=== PATIENT | male | born 1955 | race Caucasian/White ===

== ENCOUNTER 2017-09-14 16:20 | Inpatient (IN) | payer OTHER, SELFPAY ==
[2017-09-14 16:21] VITALS: BP 121/74; PULSE 82; PULSE 84; RESP 17; RESP 18; TEMP 36.8; O2SAT 97; BMI 37.5
[2017-09-14 17:04] LABS: Absolute Lymphocyte Count 1.74 X10^3/ul (0.83-4.51); Absolute Neutrophil Count 11.2 X10^3/uL (2.0-7.7); Basophil# 0.04 X10^3/uL; Basophil% 0.3 % (0-1); Eosinophil# 0.05 X10^3/uL; Eosinophils% 0.3 % (0-5); Hematocrit 43.8 % (40-54); Hemoglobin 15.3 g/dl (13.0-16.5); Lymphocyte # 1.74 X10^3/ul (4.0); Lymphocyte % 12.1 % (19-41); Mean Corp Hgb Conc 34.9 g/gl (32-36); Mean Corpuscular Hgb 31.1 pg (27.0-32.0); Mean Platelet Vol. 10.1 fl (6.2-12.0); Neutrophil # 11.24 X10^3/uL (2.7-7.7); Platelet Count 293 K/mm3 (150-450); RBC Distribution Width SD 38.3 fl (35.1-43.9); Red Blood Count 4.92 M/mm3 (4.6-6.2); White Blood Count 14.4 K/mm3 (4.4-11.0)
[2017-09-14 17:13] LABS: POSITIVE COUNT NO; POSITIVE DIFFERENTIAL NO; POSITIVE MORPHOLOGY NO
[2017-09-14 17:15] LABS: Anion Gap 7 (5-15); BUN 7 mg/dL (7-18); BUN/Creat Ratio 6.7 RATIO (10-20); Calcium,Total 9.1 mg/dL (8.5-10.1); Chloride 103 mmol/L (98-107); Creatinine, Serum 1.05 mg/dL (0.70-1.30); EST Glomerular Filtration Rate 76 mL/min (>60); Est Glom Filt Rate - Afr Amer 92 mL/min (>60); Estimated Creatinine Clearance 53.96 ml/min; Glucose 106 mg/dL (74-106); Potassium 4.2 mmol/L (3.5-5.1); Sodium Level 138 mmol/L (136-145)
--- NOTE | 2017-09-14 17:44 | CT_ITS ---
STUDY: CT ABDOMEN AND PELVIS WITH CONTRAST REASON FOR EXAM: Male, 61 years old. Abdominal pain RADIATION DOSAGE (If Supplied By Facility): CTDIvol = ( 15.98 ) mGy, DLP = ( 1089.99 ) mGycm TECHNIQUE: Transaxial images were obtained from the lower chest to the upper thighs without oral contrast. 100 ml of Isovue 300 contrast was administered. Sagittal and coronal images were reconstructed. Individualized dose optimization techniques were used for this CT. COMPARISON: None. FINDINGS: There is minimal dependent atelectasis in both lung bases. There is no pleural effusion. The heart is normal in size. The liver is unremarkable. The gallbladder and biliary system are unremarkable. The spleen is unremarkable. The pancreas is unremarkable. The adrenal glands are unremarkable. The right kidney is unremarkable. There is no dilatation of the collecting system in the right kidney. There is a benign 2.3 cm cyst in the upper pole of the left kidney. There is no dilatation of the collecting system in the left kidney. The stomach is unremarkable. The small bowel is unremarkable. There are diverticula in the distal colon. There is marked wall thickening and surrounding stranding in the proximal and mid sigmoid. The appendix is visualized and appears normal. There are minimal vascular calcifications. The inferior vena cava is unremarkable. The retroperitoneum is unremarkable. There is no free fluid in the abdomen. The urinary bladder is unremarkable. The prostate measures up to 7 cm in the sagittal plane. There is trace fluid in the pelvis. There are small phleboliths scattered in the lower pelvis. There is a small umbilical hernia containing fat. There are mild degenerative changes in the visualized spine. There are a few sclerotic foci are scattered in the lower spine and pelvis. The largest measures 1.1 cm in the T10 vertebral body. CT/Abdomen/Pelvis W IV Cont ONLY IMPRESSION: There is acute diverticulitis in the proximal and mid sigmoid. There is no bowel obstruction, free air or evidence of abscess. There is trace ascites in the pelvis. The prostate is enlarged measuring 7 cm in the sagittal plane and extending into the lower aspect of the bladder. There are a few small sclerotic foci scattered in the lower spine and pelvis which are nonspecific. The largest measures 1.1 cm in the T10 vertebral body. Electronically Signed: Reta Rooney MD at 18:55 EDT Tel Direct: [phone], Service support ,
[2017-09-14] MEDS: 0.9% Normal Saline 1,000 ML 999 ML IV (18:08)
--- NOTE | 2017-09-14 18:14 | ED.DCSUM_ITS ---
- ER Visit Summary Date of Service: 09/14/17 Chief Complaint: Abdominal pain History of Present Illness: The patient is a 61 M presents to the emergency department abdominal pain. The patient does have a history of diverticulitis. He states that he was actually hospitalized in 2010 with an abscess. He did see Dr. Henry at that time. He did not require any intervention. He was following up as an outpatient and they were going to schedule surgery, but he states he ended up having urinary retention and had to see a urologist. He has been on prostate medication since, but never followed up again to discuss surgery. He states that once a year, he will get a flare. He called his primary care physician who started him on Cipro and Flagyl. He has been on it for 5 days, but feels as if his pain is worsened. He denies any fevers or chills. He denies any nausea or vomiting. He has no history of abdominal surgery. Physical Examination: Vital signs reviewed General: Well-nourished, well-developed Head: Normocephalic, atraumatic Eyes: Pupils equal and reactive, extraocular muscles intact Neck, supple, no lymphadenopathy Heart: Regular rate and rhythm Respiratory: No distress, clear bilaterally Abdomen: Soft, mildly tender in the left lower quadrant without rebound or guarding, nondistended, no peritoneal signs Back: Nontender Extremities: Nontender, no edema, no cords Skin: Normal color no rash Neuro: Alert and oriented, no focal or lateralizing deficits Test Results: [] Emergency Department Course and Treatment: The patient presents with persistent symptoms of diverticulitis without improvement on outpatient medications. He was mildly tender in his left lower quadrant. IV was established. Screening labs do show mild leukocytosis but otherwise unremarkable. Patient was sent for CT of the abdomen and pelvis which does show persistent diverticular disease , but no evidence of abscess or perforation. As the patient has failed outpatient management and has persistent symptoms, I do feel that he will require admission with IV antibiotics. Patient was discussed with the hospitalist who agrees with plan of care. Treatment Plan: [] Disposition: Admission Impression: 1. Diverticulitis with failed outpatient treatment This note was generated with Stockpileation software. It may contain incorrect words, spelling, and punctuation that were not noted in review of the chart prior to signing ED Disposition - Plan for ED Patient: Disposition: Acute Care Hospital [facility] Chief Complaint: Abd Pain
[2017-09-14 19:03] LABS: Bacteria 0 SEEN /hpf (None Seen); Mucous, Urine 0 SEEN /hpf (<or=2+); Red Blood Cells-Urine 0 SEEN /hpf (0-5); Squamous Epithelial Cells - UA 0 SEEN /hpf (0-5); White Blood Cells 0 SEEN /hpf (0-5)
[2017-09-14 19:10] LABS: Color, Urine Yellow (Yellow); Glucose, Dipstick Normal (Normal); Ketone-Dipstick 50 mg/dl (Negative); Leukocyte Esterase-Dipstick 25 /ul (Negative); Nitrite-Dipstick Negative (Negative); Occult Blood-Urine Negative /ul (Negative); Protein-Dipstick Negative (Negative); Urine Bilirubin Dipstick Negative (Negative); Urine Clarity Clear (Clear); Urine Urobilinogen Normal (Normal); Urine pH 6.5 (5.0 - 8.0)
--- NOTE | 2017-09-14 20:00 | PCM.HP.STD ---
Problem List (1) Diverticulitis Status: Acute (2) BPH (benign prostatic hyperplasia) Status: Chronic History of Present Illness Date of Admission: 09/14/17 Chief Complaint: abdominal pain The patient is a 61 year old M with past medical history of hyperlipidemia, diverticulosis and benign prostatic hypertrophy who [facility] c/o abdominal pain for 5 days. He denied fevers, chills, nausea, vomiting, sweats, diarrhea or constipation. He has had diverticulitis once a year since 2010. He has seen Dr. Villareal in the past who plans a sigmoid colectomy but, pt never followed up after he saw Dr. Zambrano for BPH and was treated. He has been juan a clear liquid diet and has taken Cipro and Flagyl for 5 days with no improvement in the pain. Vital signs at presentation to the emergency room were temperature 98.3, pulse rate 84, blood pressure 121/74, respiratory rate 18 and he was 97% saturated on room air. Significant lab included an elevated white blood cell count at 14.4 with 78% neutrophils. Electrolytes, BUN and creatinine were within normal limits. UA was negative for infection. CT scan of the abdomen and pelvis showed marked wall thickening and surrounding stranding in the proximal and mid sigmoid colon. There were multiple diverticuli. There was a small umbilical hernia containing fat. Findings were consistent with acute diverticulitis in the proximal and mid sigmoid with no evidence of abscess. He was given Zosyn 4.5 g in the emergency room and [facility] Zosyn will be continued and he was started on a clear liquid diet. Past Medical History Past Medical History (Chronic Problems): Chronic Problems BPH (benign prostatic hyperplasia) (Chronic) Dyslipidemia (Chronic) Allergies No Known Allergies Allergy (Verified 09/14/17 16:21) Home Medications: Ambulatory Orders Medication Instructions Recorded Dextrin [Fiber] 350 gm PO DAILY 09/14/17 Finasteride [Proscar] 5 mg PO DAILY 09/14/17 Multivitamins,Therapeutic 1 tablet PO DAILY 09/14/17 [Multivitamin] Tamsulosin HCl [Flomax] 0.4 mg PO DAILY 09/14/17 Surgical History: no surgical history Psychiatric History: No pertinent psych hx Lives: Spouse/ Significant Other Smoking Status: Former smoker - quit in 1979 Tobacco Use: Non-smoker Alcohol: Heavy - he has a few beers every day and he occasionally drinks hard liquor - *Family History Maternal History Items: - - His mother with cervical cancer Paternal History Items: - - Father with a ruptured aortic aneurysm Sibling History Items: - - He has a brother with diabetes mellitus. Review of Systems Constitutional: Reports: Anorexia. Denies: Chills, Fever, Night Sweats Eyes: Denies: Vision Change HEENT: Denies: Head Aches, Sinus Congestion, Sinus Drainage Cardiovascular: Denies: Chest Pain, Palpitations Respiratory: Denies: Cough, Shortness of breath at rest, Shortness of breath upon exertion, Sputum production Gastrointestinal: Reports: Abdominal Pain, Vomiting. Denies: Constipation, Diarrhea, Hematemesis, Hematochezia, Nausea, Melena Genitourinary: Denies: Dysuria, Hesitancy, Retention, Urgency Musculoskeletal: Denies: Joint Pain, Joint Tenderness Skin: Denies: Rash, Wounds Neurological: Denies: Numbness, Tingling, Focal weakness Psychiatric: Denies: Anxiety, Depression, Homicidal Ideations, Suicidal Ideations Endocrine: Denies: Change in Body Habitus Hematologic/ Lymphatic: Denies: Easy Bruising, Easy Bleeding, Hx of blood clot VTE Information - Inpt Only VTE Present on Admission: No VTE Mechan Device Prophylaxis: Knee High DELLA Hose VTE Pharm Prophylaxis ordered?: Yes Patient Problems: Active and Suspected Problems Diverticulitis (Acute) - Physical Exam General: Alert, Oriented x3, Cooperative, Well developed, Well nourished HEENT: Atraumatic, PERRLA, EOMI, Normocephalic Oral: No Gingival or Mucosal Lesions/ Ulcerations, Dry Mucosa Neck: Supple, No JVD, Negative Carotid Bruits, Trachea Midline Lungs: Clear to auscultation, Normal air movement, No rhonchi, No wheeze, No rales Cardiovascular: Regular rate, Regular Rhythm, Normal S1, Normal S2, No murmurs, No rub noted, No Gallop Abdomen: Bowel Sounds Present, Soft, Distended - mild, Tender - in the RLQ and the LLQ....no guarding with palpation. No pain with palpation in the upper quadrants Extremities: No clubbing, No cyanosis, No edema, No Calf Tenderness, Peripheral Pulses Normal Skin: No rashes, No breakdown Musculoskeletal: No Muscle Wasting Neurological: Cranial nerves II-XII grossly intact, Neuro grossly intact Psych/Mental Status: Normal Affect, Appropriate Vital Signs Temp Pulse Resp BP Pulse Ox 98.3 F 84 18 121/74 H 97 09/14/17 16:21 09/14/17 16:21 09/14/17 16:21 09/14/17 16:21 09/14/17 16:21 Oxygen Delivery Method Room Air Weight: 198 lb 13.711 oz Body Mass Index (BMI) 37.5 Laboratory Tests Past 24 Hrs 09/14/17 09/14/17 09/14/17 16:54 16:54 18:35 WBC 14.4 H RBC 4.92 Hgb 15.3 Hct 43.8 MCV 89.0 MCH 31.1 MCHC 34.9 RDW 12.0 RDW Differential 38.3 Plt Count 293 MPV 10.1 Immature Gran % (Auto) 0.300 Neut % (Auto) 78.0 H Lymph % (Auto) 12.1 L Woods % (Auto) 9.0 Eos % (Auto) 0.3 Baso % (Auto) 0.3 Absolute Neuts (auto) 11.2 H Absolute Lymphs (auto) 1.74 Total Counted Not Reportable Sodium 138 Potassium 4.2 Chloride 103 Carbon Dioxide 28.0 Anion Gap 7 BUN 7 Creatinine 1.05 Estim Creat Clear Calc 53.96 Est GFR (MDRD) Af Amer 92 Est GFR (MDRD) Non-Af 76 BUN/Creatinine Ratio 6.7 L Glucose 106 Calcium 9.1 Urine Color Yellow Urine Clarity Clear Urine pH 6.5 Ur Specific [place] 1.010 Urine Protein Negative Urine Glucose (UA) Normal Urine Ketones 50 H Urine Occult Blood Negative Urine Nitrite Negative Urine Bilirubin Negative Urine Urobilinogen Normal Ur Leukocyte Esterase 25 H Urine RBC 0 SEEN Urine WBC 0 SEEN Ur Squamous Epith Cells 0 SEEN Urine Bacteria 0 SEEN Urine Mucus 0 SEEN Assessment/Plan All Active Problems Diverticulitis (Acute) Impressions 1. acute recurrent diverticulitis in the proximal and mid sigmoid - failed OP 2. diverticulosis 3. BPH 4. HLD - untreated Admit to med surg Clear Liquid diet -advance to low residue diet as tolerated Zosyn 3.375 GM IV q 8 hr LR at 125cc/hr DVT prophylaxis with DELLA hose and Lovenox 40 mg subcu daily Order pain medication, morphine sulfate 4 mg IV every 3 hours as needed pain and OxyIR 10 mg p.o. every 4 hours as needed pain Discussed with Dr. Kirk Villareal-he will see the patient in follow-up in his office post discharge to arrange for sigmoid colectomy. He is available over the weekend should the patient develop an abscess or any significant problems requiring general surgery. Check a lipid panel in the a.m. Continue home meds. Code Visit Inpatient E&M: 96048 Init Hosp L2
[2017-09-14 20:28] VITALS: BP 119/83; PULSE 69; RESP 16; TEMP 36.8; O2SAT 100
[2017-09-14 20:31] VITALS: BMI 26.2
[2017-09-14 20:42] VITALS: BMI 26.3
[2017-09-14] MEDS: Lactated Ringers 1,000 ML 125 ML IV (21:00)
[2017-09-15 02:42] VITALS: BP 118/73; PULSE 62; RESP 16; TEMP 37; O2SAT 99
[2017-09-15] MEDS: Lactated Ringers 1,000 ML 125 ML IV ×3 (05:05→23:08)
[2017-09-15] MEDS: Piperacil/Tazobactam 3.375 GM/50 ML ML IV ×3 (05:05→21:11)
[2017-09-15 06:54] LABS: Cholesterol 103 mg/dL (200); High Density Lipoprotein 36 mg/dL; Triglycerides 48 mg/dL; Very Low Density Lipoprotein 10 mg/dL (5-40)
--- NOTE | 2017-09-15 07:29 | PCM.PN.HOSP ---
Patient Problems: Active and Suspected Problems Diverticulitis (Acute) Subjective: Patient is a 61-year-old gentleman with past medical history cigar for dyslipidemia, BPH who presented with abdominal pain. Patient had apparently been treated with Cipro and Flagyl for diverticulitis as outpatient without much improvement imaging studies obtained on admission demonstrated acute diverticulitis involving the proximal and mid sigmoid. Objective: GENERAL: cooperative HEENT: Clear conjunctiva, NECK; supple, normal thyroid, CHEST: Clear to auscultation bilaterally, HEART: Regular S1 S2, no audible murmurs ABDOMEN: soft, normoactive bowel sounds, RECTAL: deferred EXTREMITIES: No edema, no clubbing, no cyanosis. ROAD CLEANER: Awake; no lateralizing signs. SKIN: No Rash Vitals/I&O's: Vital Signs Temp Pulse Resp BP Pulse Ox 98.6 F 62 16 118/73 99 09/15/17 02:42 09/15/17 02:42 09/15/17 02:42 09/15/17 02:42 09/15/17 02:42 Oxygen Delivery Method Room Air Weight: 90.401 kg Body Mass Index (BMI) 26.2 Intake and Output for Last 24 Hours 09/13/17 09/14/17 09/15/17 23:59 23:59 23:59 Intake Total 1673 / 1673 Output Total 300 / 300 Balance 1373 / 1373 Laboratory Results 09/15/17 05:40: Triglycerides 48, Cholesterol 103, LDL Cholesterol 57, VLDL Cholesterol 10, HDL Cholesterol 36 L Current Medications Enoxaparin Sodium (Lovenox) 40 mg SC DAILY@1000 MARIE Finasteride (Proscar) 5 mg PO DAILY [facility] Famotidine 20 mg/ Sodium (Chloride) 10 mls @ 300 mls/hr IV Q12 [facility] Last Admin: 09/14/17 21:51 Dose: 300 mls/hr Piperacillin Sod/Tazobactam Sod (Zosyn) 3.375 gm in 50 mls @ 12.5 mls/hr IV Q8 MARIE Last Admin: 09/15/17 05:05 Dose: 12.5 mls/hr Lactated Ringer's () 1,000 mls @ 125 mls/hr IV .Q8H MARIE Last Admin: 09/15/17 05:05 Dose: 125 mls/hr Sodium Chloride () 250 mls @ 15 mls/hr IV .[id number] PRN PRN Reason: SALINE FLUSH Magnesium Hydroxide (Milk Of Magnesia) 30 ml PO DAILY PRN PRN PRN Reason: Constipation Morphine Sulfate () 4 mg IV Q3H PRN PRN PRN Reason: SEVERE PAIN (6-10/10) Multivitamins (Multivitamin) 1 tablet PO DAILY MARIE Ondansetron HCl (Zofran) 4 mg IV Q6H PRN PRN PRN Reason: NAUSEA Oxycodone HCl (Oxyir) 10 mg PO Q4H PRN PRN PRN Reason: SEVERE PAIN (6-10/10) Sodium Chloride () 5 - 30 ml IV UD PRN PRN Reason: SALINE FLUSH Tamsulosin HCl (Flomax) 0.4 mg PO DAILY [facility] Medical Necessity - Tobacco Use Smoking Status: Former smoker - quit in 1979 Tobacco Use: Non-smoker Assessment/Plan All Active Problems Diverticulitis (Acute) Patient is a 61-year-old gentleman with past medical history cigar for dyslipidemia, BPH who presented with abdominal pain. Patient had apparently been treated with Cipro and Flagyl for diverticulitis as outpatient without much improvement imaging studies obtained on admission demonstrated acute diverticulitis involving the proximal and mid sigmoid. 1. Acute proximal and mid sigmoid diverticulitis: Patient did feel outpatient therapy admitted for inpatient treatment. Started on Zosyn, IV fluids pain meds 2. Recurrent diverticulitis; did discuss with patient to follow-up with general surgery Dr. Villareal as outpatient for definitive management 3. BPH symptoms controlled on Proscar and Flomax 3. Dyslipidemia treated with diet 4. DVT prophylaxis SC heparin Clinical Impression(s) from Imaging Studies Abdomen/Pelvis CT 09/14/17 17:44 IMPRESSION: There is acute diverticulitis in the proximal and mid sigmoid. There is no bowel obstruction, free air or evidence of abscess. There is trace ascites in the pelvis. The prostate is enlarged measuring 7 cm in the sagittal plane and extending into the lower aspect of the bladder. There are a few small sclerotic foci scattered in the lower spine and pelvis which are nonspecific. The largest measures 1.1 cm in the T10 vertebral body. Electronically Signed: Reta Rooney MD at 18:55 EDT Tel Direct: [phone], Service support , Active Medications Enoxaparin Sodium (Lovenox) 40 mg SC DAILY@1000 MARIE Finasteride (Proscar) 5 mg PO DAILY [facility] Famotidine 20 mg/ Sodium (Chloride) 10 mls @ 300 mls/hr IV Q12 [facility] Last Admin: 09/14/17 21:51 Dose: 300 mls/hr Piperacillin Sod/Tazobactam Sod (Zosyn) 3.375 gm in 50 mls @ 12.5 mls/hr IV Q8 [facility] Last Admin: 09/15/17 05:05 Dose: 12.5 mls/hr Lactated Ringer's () 1,000 mls @ 125 mls/hr IV .Q8H [facility] Last Admin: 09/15/17 05:05 Dose: 125 mls/hr Sodium Chloride () 250 mls @ 15 mls/hr IV .[id number] PRN PRN Reason: SALINE FLUSH Magnesium Hydroxide (Milk Of Magnesia) 30 ml PO DAILY PRN PRN PRN Reason: Constipation Morphine Sulfate () 4 mg IV Q3H PRN PRN PRN Reason: SEVERE PAIN (6-10/10) Multivitamins (Multivitamin) 1 tablet PO DAILY [facility] Ondansetron HCl (Zofran) 4 mg IV Q6H PRN PRN PRN Reason: NAUSEA Oxycodone HCl (Oxyir) 10 mg PO Q4H PRN PRN PRN Reason: SEVERE PAIN (6-10/10) Sodium Chloride () 5 - 30 ml IV UD PRN PRN Reason: SALINE FLUSH Tamsulosin HCl (Flomax) 0.4 mg PO DAILY [facility] Code Visit Inpatient E&M: [address] [facility] Hosp L3
[2017-09-15 07:43] VITALS: BP 115/72; PULSE 66; RESP 16; TEMP 37.2; O2SAT 95
[2017-09-15] MEDS: Enoxaparin 40 MG/0.4 ML Syringe SC (10:35)
[2017-09-15] MEDS: Finasteride 5 MG Tablet PO (10:36)
[2017-09-15] MEDS: Multivitamins,Therapeutic Tablet 1 TABLET PO (10:36)
[2017-09-15] MEDS: Tamsulosin HCl 0.4 MG Capsule PO (10:36)
[2017-09-15 13:29] VITALS: BP 122/69; PULSE 70; RESP 16; TEMP 36.9; O2SAT 98
--- NOTE | 2017-09-15 14:40 | CHAPLAIN ---
Type of Pastoral Visit _x__ Initial Visit ___ Follow-up Visit ___ On-call Visit ___ General Patient Visit ___ Spiritual Assessment ___ Family Conference ___ Bereavement ___ Rapid Response ___ Code Blue ___ Other (describe below) Pastoral Care Referral From _x__ Patient ___ Family ___ Nurse ___ Physician ___ Menagerie Superintendent ___ Bulk Delivery Driver ___ Other (describe below) Sacrament/Intervention _x__ Active listening ___ Anointing ___ Anabaptist ___ Bereavement ___ Communion ___ Amy exploration ___ ___ Life review _x__ Prayer ___ Reconciliation ___ Sacrament of Sick _x__ Supportive presence ___ Wedding ___ Other (describe below) Pastoral Comments patient is talkative and uses humor often in communication
--- NOTE | 2017-09-15 14:49 | CASEMGMT ---
CARLOS CORTEZ Face to Face with patient for initial transition planning/care coordination assessment. CARLOS CORTEZ introduced self and role at [facility]. Patient sitting in chair, alert and oriented. Patient willing to participate in assessment and is able to answer all questions appropriately. Care providers, pharmacy, and demographics verified. Patient lives in a one story home with is independent at home. Patient denies needs for DME. Patient wishes to discharge home, denies need for home health at this time. Patient states he has no further needs or concerns at this time. CM to follow for discharge planning needs that may arise. Disposition Plan: Patient to discharge home with family support and follow up plans in place.
[2017-09-15 21:05] VITALS: BP 115/71; PULSE 72; RESP 16; TEMP 36.7; O2SAT 99
[2017-09-16 03:04] VITALS: BP 118/75; PULSE 61; RESP 16; TEMP 36.4; O2SAT 98
[2017-09-16] MEDS: Piperacil/Tazobactam 3.375 GM/50 ML ML IV (05:53)
[2017-09-16] MEDS: Lactated Ringers 1,000 ML 125 ML IV (07:22)
--- NOTE | 2017-09-16 07:22 | PCM.PN.HOSP ---
Patient Problems: Active and Suspected Problems Diverticulitis (Acute) Subjective: Patient seen pain significantly improved plan is for patient to be discharged home today Objective: GENERAL: cooperative HEENT: Clear conjunctiva, NECK; supple, normal thyroid, CHEST: Clear to auscultation bilaterally, HEART: Regular S1 S2, no audible murmurs ABDOMEN: soft, normoactive bowel sounds, RECTAL: deferred EXTREMITIES: No edema, no clubbing, no cyanosis. OBSERVATION ASSISTANT: Awake; no lateralizing signs. SKIN: No Rash Vitals/I&O's: Vital Signs Temp Pulse Resp BP Pulse Ox 97.6 F L 61 16 118/75 98 09/16/17 03:04 09/16/17 03:04 09/16/17 03:04 09/16/17 03:04 09/16/17 03:04 Oxygen Delivery Method Room Air Weight: 90.4 kg Body Mass Index (BMI) 26.2 Intake and Output for Last 24 Hours 09/14/17 09/15/17 09/16/17 23:59 23:59 23:59 Intake Total 1773 / 1773 2340 / 2340 Output Total 600 / 600 1600 / 1600 Balance 1173 / 1173 740 / 740 Current Medications Enoxaparin Sodium (Lovenox) 40 mg SC DAILY@1000 [facility] Last Admin: 09/15/17 10:35 Dose: 40 mg Finasteride (Proscar) 5 mg PO DAILY [facility] Last Admin: 09/15/17 10:36 Dose: 5 mg Famotidine 20 mg/ Sodium (Chloride) 10 mls @ 300 mls/hr IV Q12 [facility] Last Admin: 09/15/17 21:10 Dose: 300 mls/hr Piperacillin Sod/Tazobactam Sod (Zosyn) 3.375 gm in 50 mls @ 12.5 mls/hr IV Q8 [facility] Last Admin: 09/16/17 05:53 Dose: 12.5 mls/hr Lactated Ringer's () 1,000 mls @ 125 mls/hr IV .Q8H [facility] Last Admin: 09/15/17 23:08 Dose: 125 mls/hr Sodium Chloride () 250 mls @ 15 mls/hr IV .[id number] PRN PRN Reason: SALINE FLUSH Magnesium Hydroxide (Milk Of Magnesia) 30 ml PO DAILY PRN PRN PRN Reason: Constipation Morphine Sulfate () 4 mg IV Q3H PRN PRN PRN Reason: SEVERE PAIN (6-10/10) Multivitamins (Multivitamin) 1 tablet PO DAILY [facility] Last Admin: 09/15/17 10:36 Dose: 1 tablet Ondansetron HCl (Zofran) 4 mg IV Q6H PRN PRN PRN Reason: NAUSEA Oxycodone HCl (Oxyir) 10 mg PO Q4H PRN PRN PRN Reason: SEVERE PAIN (6-10/10) Sodium Chloride () 5 - 30 ml IV UD PRN PRN Reason: SALINE FLUSH Tamsulosin HCl (Flomax) 0.4 mg PO DAILY [facility] Last Admin: 09/15/17 10:36 Dose: 0.4 mg Medical Necessity - Tobacco Use Smoking Status: Former smoker - quit in 1979 Tobacco Use: Non-smoker Assessment/Plan All Active Problems Diverticulitis (Acute) Patient is a 61-year-old gentleman with past medical history cigar for dyslipidemia, BPH who presented with abdominal pain. Patient had apparently been treated with Cipro and Flagyl for diverticulitis as outpatient without much improvement imaging studies obtained on admission demonstrated acute diverticulitis involving the proximal and mid sigmoid. 1. Acute proximal and mid sigmoid diverticulitis: Patient did feel outpatient therapy admitted for inpatient treatment. Started on Zosyn, IV fluids pain meds 2. Recurrent diverticulitis; did discuss with patient to follow-up with general surgery Dr. Villareal as outpatient for definitive management 3. BPH symptoms controlled on Proscar and Flomax 3. Dyslipidemia treated with diet 4. DVT prophylaxis SC heparin Clinical Impression(s) from Imaging Studies Abdomen/Pelvis CT 09/14/17 17:44 IMPRESSION: There is acute diverticulitis in the proximal and mid sigmoid. There is no bowel obstruction, free air or evidence of abscess. There is trace ascites in the pelvis. The prostate is enlarged measuring 7 cm in the sagittal plane and extending into the lower aspect of the bladder. There are a few small sclerotic foci scattered in the lower spine and pelvis which are nonspecific. The largest measures 1.1 cm in the T10 vertebral body. Electronically Signed: Reta Rooney MD at 18:55 EDT Tel Direct: [phone], Service support , Active Medications Enoxaparin Sodium (Lovenox) 40 mg SC DAILY@1000 MARIE Finasteride (Proscar) 5 mg PO DAILY [facility] Famotidine 20 mg/ Sodium (Chloride) 10 mls @ 300 mls/hr IV Q12 [facility] Last Admin: 09/14/17 21:51 Dose: 300 mls/hr Piperacillin Sod/Tazobactam Sod (Zosyn) 3.375 gm in 50 mls @ 12.5 mls/hr IV Q8 [facility] Last Admin: 09/15/17 05:05 Dose: 12.5 mls/hr Lactated Ringer's () 1,000 mls @ 125 mls/hr IV .Q8H [facility] Last Admin: 09/15/17 05:05 Dose: 125 mls/hr Sodium Chloride () 250 mls @ 15 mls/hr IV .[id number] PRN PRN Reason: SALINE FLUSH Magnesium Hydroxide (Milk Of Magnesia) 30 ml PO DAILY PRN PRN PRN Reason: Constipation Morphine Sulfate () 4 mg IV Q3H PRN PRN PRN Reason: SEVERE PAIN (6-10/10) Multivitamins (Multivitamin) 1 tablet PO DAILY [facility] Ondansetron HCl (Zofran) 4 mg IV Q6H PRN PRN PRN Reason: NAUSEA Oxycodone HCl (Oxyir) 10 mg PO Q4H PRN PRN PRN Reason: SEVERE PAIN (6-10/10) Sodium Chloride () 5 - 30 ml IV UD PRN PRN Reason: SALINE FLUSH Tamsulosin HCl (Flomax) 0.4 mg PO DAILY [facility]
--- NOTE | 2017-09-16 07:59 | DCINST_ITS ---
- Discharge Diagnoses Current Active Problems: Current Active and Chronic Problems Diverticulitis (Acute) BPH (benign prostatic hyperplasia) (Chronic) You will use the following diet at home:: Regular, High fiber Your food should be the consistency of: Regular Discharge Activity: Return to Normal Activity Allergies/Adverse Reactions: Allergies No Known Allergies Allergy (Verified 09/14/17 16:21) Medications to take at Discharge Dextrin [Fiber] 350 gm PO DAILY 09/14/17 Finasteride [Proscar] 5 mg PO DAILY 09/14/17 Multivitamins,Therapeutic [Multivitamin] 1 tablet PO DAILY 09/14/17 Tamsulosin HCl [Flomax] 0.4 mg PO DAILY 09/14/17 Ciprofloxacin [Cipro] 500 mg PO BID #8 tablet 09/16/17 Metronidazole [Flagyl] 500 mg PO Q8H #12 tablet 09/16/17 The following prescriptions were given: Ciprofloxacin [Cipro] 500 mg PO BID #8 tablet Metronidazole [Flagyl] 500 mg PO Q8H #12 tablet Primary Care Physician: Henry Salinas MD [Primary Care Provider] - Please follow up with your Primary Care Physician in: in 5-7 days Test Results: Test results from this visit will be discussed in further detail at your follow- up appointment, if applicable. Please Follow Up With: Kirk Villareal MD When: patient to call for follow up appointment Proposed Discharge Date: 09/16/17
--- NOTE | 2017-09-16 08:00 | PCM.DC.SUM ---
Discharge Date and Diagnosis - Problem List Patient Problems: Active and Suspected Problems Diverticulitis (Acute) Date of Admission: 09/14/17 Date of Discharge: 09/16/17 - Primary Discharge Diagnosis Active and Suspected Problems Diverticulitis (Acute) - Secondary Discharge Diagnosis Chronic Problems BPH (benign prostatic hyperplasia) (Chronic) Dyslipidemia (Chronic) Hospital Course and Treatment Imaging Results: Impressions Abdomen/Pelvis CT 09/14/17 17:44 IMPRESSION: There is acute diverticulitis in the proximal and mid sigmoid. There is no bowel obstruction, free air or evidence of abscess. There is trace ascites in the pelvis. The prostate is enlarged measuring 7 cm in the sagittal plane and extending into the lower aspect of the bladder. There are a few small sclerotic foci scattered in the lower spine and pelvis which are nonspecific. The largest measures 1.1 cm in the T10 vertebral body. Electronically Signed: Reta Rooney MD at 18:55 EDT Tel Direct: [phone], Service support , Summary of Care Provided: Patient is a 61-year-old gentleman with past medical history cigar for dyslipidemia, BPH who presented with abdominal pain. Patient had apparently been treated with Cipro and Flagyl for diverticulitis as outpatient without much improvement imaging studies obtained on admission demonstrated acute diverticulitis involving the proximal and mid sigmoid. 1. Acute proximal and mid sigmoid diverticulitis: Patient did fail outpatient therapy admitted for inpatient treatment. Started on Zosyn, IV fluids pain meds. Patient condition did improve after 4 days of hospital management. He was discharged home to complete his prescription of Flagyl and Cipro for 4 additional days. He was also given Dr. Perez's number to call to schedule a follow-up appointment. 2. Recurrent diverticulitis; did discuss with patient to follow-up with general surgery Dr. Villareal as outpatient for definitive management 3. BPH symptoms controlled on Proscar and Flomax 3. Dyslipidemia treated with diet 4. DVT prophylaxis SC heparin Discharge Diet: No Restrictions Discharge Activity: Return to Normal Activity Home Medications: Medications to take at Discharge Dextrin [Fiber] 350 gm PO DAILY 09/14/17 Finasteride [Proscar] 5 mg PO DAILY 09/14/17 Multivitamins,Therapeutic [Multivitamin] 1 tablet PO DAILY 09/14/17 Tamsulosin HCl [Flomax] 0.4 mg PO DAILY 09/14/17 Ciprofloxacin [Cipro] 500 mg PO BID #8 tablet 09/16/17 Metronidazole [Flagyl] 500 mg PO Q8H #12 tablet 09/16/17 Following Prescrptions Were Given to Patient: Ciprofloxacin [Cipro] 500 mg PO BID #8 tablet Metronidazole [Flagyl] 500 mg PO Q8H #12 tablet Primary Care Physician: Henry Salinas MD [Primary Care Provider] - Please follow up with your Primary Care Physician in: in 5-7 days Please Follow Up With: Kirk Villareal MD When: patient to call for follow up appointment Disposition: Home Minutes spent on discharge:: 35 Patient Condition:: Stable Medical Necessity - Tobacco Use Smoking Status: Former smoker - quit in 1979 Tobacco Use: Non-smoker Meaningful Use Info Meaningful Use Diagnoses (Choose all that apply): None applicable Code Visit Inpatient E&M: 73678 Disch Hosp
[2017-09-16 08:54] VITALS: BP 117/70; PULSE 67; RESP 18; TEMP 36.7; O2SAT 100
[2017-09-16] MEDS: Tamsulosin HCl 0.4 MG Capsule PO (08:57)
[2017-09-16] MEDS: Multivitamins,Therapeutic Tablet 1 TABLET PO (08:57)
[2017-09-16] MEDS: Finasteride 5 MG Tablet PO (08:58)
[2017-09-16] MEDS: 0.9% NaCl Peripheral Flush Adult/Peds IV (09:38)
== END 2017-09-16 10:30 | disposition home or self-care (01) | DRG 392 ==
LOC: ED 20:00 → MS3 20:01
PROVIDERS: Admitting Provider Internal Medicine; Emergency Provider Emergency Medicine; Family Provider Internal Medicine; PCP Internal Medicine; Visit Provider Internal Medicine
DX: K57.32 Diverticulitis of large intestine without perforation or abscess without bleeding (principal); N40.0 Benign prostatic hyperplasia without lower urinary tract symptoms; E78.5 Hyperlipidemia, unspecified; Z87.891 Personal history of nicotine dependence
CPT/HCPCS: 36415; 74177; 80048; 80061; 81001; 85025; 87040; 97802; 99282; J7030; J7120; Q9967; A4216; J3490

== ENCOUNTER 2017-11-29 05:23 | Inpatient (IN) | payer OTHER, SELFPAY ==
[2017-11-22 13:38] VITALS: BP 127/75; PULSE 70; RESP 16; TEMP 36.9; O2SAT 97; BMI 25.8
--- NOTE | 2017-11-22 14:10 | SDCEKG_ITS ---
Test Reason : Blood Pressure : / mmHG Vent. Rate : 065 BPM Atrial Rate : 065 BPM P-R Int : 170 ms QRS Dur : 094 ms QT Int : 408 ms P-R-T Axes : 025 -04 019 degrees QTc Int : 424 ms Normal sinus rhythm Normal ECG Confirmed by MO BOSS, SAGAR ([id number]), state editor JOHNNY PINEDA ([id number]) on 11/24/2017 1:11:06 PM Referred By: Kirk Villareal Confirmed By:SAGAR HASSAN MD
[2017-11-22 15:22] LABS: Hematocrit 43.4 % (40-54); Hemoglobin 14.9 g/dl (13.0-16.5); Mean Corp Hgb Conc 34.3 g/gl (32-36); Mean Corpuscular Hgb 31.2 pg (27.0-32.0); Mean Platelet Vol. 10.5 fl (6.2-12.0); Platelet Count 251 K/mm3 (150-450); RBC Distribution Width CV 13.5 % (11.6-14.6); RBC Distribution Width SD 44.6 fl (35.1-43.9); Red Blood Count 4.77 M/mm3 (4.6-6.2); White Blood Count 7.5 K/mm3 (4.4-11.0)
[2017-11-22 15:24] LABS: Scan Indicated on CBC? Y/N NO
[2017-11-22 15:38] LABS: Anion Gap 10 (5-15); BUN 16 mg/dL (7-18); BUN/Creat Ratio 17.3 RATIO (10-20); Calcium,Total 9.2 mg/dL (8.5-10.1); Chloride 106 mmol/L (98-107); Creatinine, Serum 0.92 mg/dL (0.70-1.30); EST Glomerular Filtration Rate 88 mL/min (>60); Est Glom Filt Rate - Afr Amer 106 mL/min (>60); Estimated Creatinine Clearance 92.88 ml/min; Glucose 88 mg/dL (74-106); Sodium Level 142 mmol/L (136-145)
[2017-11-29] VITALS (11 sets, daily range): BP systolic 105–128; BP diastolic 61–86; PULSE 65–74; RESP 16–20; TEMP 36.4–37.2; O2SAT 97–100; BMI 25.8
--- NOTE | 2017-11-29 | COL_PTH ---
PATIENT: WING ORTIZ LOC: MS2 U#:[id number] AGE/SX: 62/M [place] [facility] [place] RE11/29/[address]: Dr. Kirk Villareal MD : [id number] BED: 1 DIS: 11/30/2017 SPEC #: [id number] RECD: 11/29/17 15:17 STATUS: DOM REMaren #: [id number] RONALD: 11/29/17 00:[address]: Kirk Villareal DEPT: SURGICAL PATHOLOGY RECD BY: Korey Bnods ENTERED: 11/30/17 08:16 SP TYPE: COLON OTHR DR: Dr. Henry Salinas MD Tissues: A - Colon, NOS B - Colon Donuts C - Colon Donuts Procedures: Surgery Specimen Level IV Surgery Specimen Level V HEADER OPERATION: Laparoscopic colectomy, [facility]AS PRE-OP DIAGNOSIS: Acute diverticulitis TISSUE SUBMITTED: A ? Sigmoid colon, B ? Distal donut, C ? Proximal donut MICROSCOPIC DIAGNOSIS A. Sigmoid colon, segmental colectomy: Nonruptured diverticular disease of colon. Mucosal margins of excision with no pathologic change. Two out of two lymph nodes with no pathologic change. B. Distal mucosal donut, excision: Fragment of colonic tissue with no significant pathologic change. C. Proximal mucosal donut, excision: Fragment of colonic tissue with no significant pathologic change. AM:alisha 12/01/17 MICROSCOPIC DESCRIPTION Slides are reviewed. GROSS DESCRIPTION A - Received in fixative is one container labeled with the patient's name and designated sigmoid colon. The specimen consists of a segment of colon with attached pericolonic adipose tissue measuring 20 cm in length. One resection margin is stapled and the other resection margin is opened. The lumen contains fecal material. No mucosal lesion is identified. Sections reveal multiple diverticula. Many of the diverticula are filled with fecal material. No obviously ruptured diverticula are noted. Sections of pericolonic adipose tissue reveal multiple smaller lymph nodes. [employer] sections are submitted in six cassettes as follows: 1 ? resection margin, open resection margin is inked black, 2-4 ? diverticula, 5 & 6 ? pericolonic adipose tissue with lymph nodes. B - Received in fixative is one container labeled with the patient's name and designated distal donut. The specimen consists of a donut-shaped piece of colonic tissue measuring 3 x 2 x 1.5 cm. The mucosa is congested. Multiple edmarco are noted. Youth [employer] sections are submitted in one cassette. C - Received in fixative is one container labeled with the patient's name and designated proximal donut. The specimen consists of a donut-shaped piece of colonic tissue measuring 2.5 x 2 x 1 cm. Multiple sutures are noted. [employer] sections are submitted in one cassette. / ISADORA:alisha 11/30/17 TC:5 CPT: 23099, 61725 x2
[2017-11-29] MEDS: Gabapentin 600 MG Tablet PO (06:05)
[2017-11-29] MEDS: Acetaminophen 500 MG Tablet 1000 MG PO ×3 (06:05→18:27)
[2017-11-29 06:11] LABS: Bedside Glucose 120 mg/dL (70-110)
--- NOTE | 2017-11-29 06:13 | PCM.HP.STD ---
Problem List (1) Diverticulitis Status: Acute History of Present Illness Date of Admission: 11/29/17 The patient is a 62 year old M who has had bouts of recurrent diverticulitis. 2010 he was hospitalized with acute diverticulitis with abscess. 2015 I also saw him for recurrent bouts of acute diverticulitis in the mid sigmoid. Then September 14 - September 16, 2017 he was again hospitalized with recurrent diverticulitis in the proximal to mid sigmoid colon. He had failed outpatient treatment. On September 14, 2017 he had a diverticulitis of the proximal mid sigmoid. There is no perforation at that time. His most recent colonoscopy was October 16, 2015. That showed diverticular disease of the descending sigmoid colon. Enlarged prostate. The patient does have urinary retention. He is actively treated by Dr Greene. He states that his urinary ability remains currently stable. Past Medical History Past Medical History (Chronic Problems): Chronic Problems (Last Updated 10/13/17 @ 15:38 by Sarah Quintero) BPH (benign prostatic hyperplasia) (Chronic) Dyslipidemia (Chronic) Medical History: Medical History (Last Updated 10/13/17 @ 15:38 by Sarah Quintero) Diverticulitis (Acute) K57.92 BPH (benign prostatic hyperplasia) (Chronic) N40.0 Dyslipidemia (Chronic) E78.5 History of tooth extraction K08.409 Allergies No Known Allergies Allergy (Verified 11/29/17 05:43) Home Medications: Ambulatory Orders Medication Instructions Recorded Finasteride [Proscar] 5 mg PO DAILY 09/14/17 Multivitamins,Therapeutic 1 tab PO DAILY 09/14/17 [Multivitamin] Tamsulosin HCl [Flomax] 0.4 mg PO DAILY 09/14/17 Psyllium Husk (with Sugar) 575 gm PO DAILY 11/22/17 [Metamucil Powder] Surgical History: Surgical History (Last Updated 10/13/17 @ 15:38 by Sarah Quintero) History of colonoscopy Z98.890 Surgical History: no surgical history Psychiatric History: No pertinent psych hx Smoking Status: Former smoker Tobacco Use: Non-smoker - *Family History Maternal Family History: Family History (Last Updated 10/13/17 @ 15:38 by Sarah Quintero) Brother Diabetes History Items: - Paternal Family History: Family History (Last Updated 10/13/17 @ 15:38 by Sarah Quintero) Brother Diabetes History Items: - Sibling Family History: Family History (Last Updated 10/13/17 @ 15:38 by Sarah Quintero) Brother Diabetes History Items: - Review of Systems Constitutional: Denies: Anorexia HEENT: Denies: Difficulty Hearing Cardiovascular: Denies: Chest Pain, Chest Pressure Respiratory: Denies: Cough Gastrointestinal: Denies: Abdominal Pain, Constipation Genitourinary: Reports: Frequency, Hesitancy, Nocturia, Retention Skin: Denies: Dryness Neurological: Denies: Balance problems Psychiatric: Denies: Anxiety Endocrine: Denies: Change in Body Habitus VTE Information - Inpt Only VTE Present on Admission: No - Physical Exam General: Alert, Oriented x3, Cooperative HEENT: Atraumatic Oral: Moist Mucosa Neck: Supple Lungs: Clear to auscultation Cardiovascular: Regular rate, Regular Rhythm Abdomen: Bowel Sounds Present, Soft, Non Tender, Non-Distended Extremities: No Calf Tenderness Skin: No rashes Musculoskeletal: No Tenderness to Palpation of Joints or Extremities Lymphatic: No Cervical, Supraclavicular, or Inguinal Adenopathy Neurological: Cranial nerves II-XII grossly intact Psych/Mental Status: Normal Affect Vital Signs Temp Pulse Resp BP Pulse Ox 98.1 F 68 20 H 121/86 H 97 11/29/17 05:46 11/29/17 05:46 11/29/17 05:46 11/29/17 05:46 11/22/17 13:38 Oxygen Delivery Method Room Air Weight: 195 lb 12.328 oz Body Mass Index (BMI) 25.8 POC Glucose 11/29/17 06:00 POC Glucose 120 H Assessment/Plan All Active Problems (Last Updated 10/13/17 @ 15:38 by Sarah Quintero) Diverticulitis (Acute) 62-year-old gentleman with multiple bouts of sigmoid diverticulitis. He has significant prostate enlargement and urinary retention. He is actively care for by . After his most recent bout requiring hospitalization again elected to proceed with a planned laparoscopic sigmoid colectomy. He is aware the technique, benefits, risks, alternatives. Conversion to a hand-assisted open approach will be pursued if required. I am anticipating mobilization of the splenic flexure. He has had an opportunity to ask and have questions answered. We are anticipating difficulties with urinary retention. Consultation to Dr. Greene will be pursued as required. He is presenting via [facility] program Kirk Villareal M.D., F.A.C.S.
[2017-11-29] MEDS: Lidocaine/D5W 2,000 MG/250 ML IV.SOLN 2000 MG (07:30)
[2017-11-29] MEDS: Bupivacaine Mpf 0.5% 30 ML VIAL (08:15)
[2017-11-29] MEDS: Lubricating Jelly 60 GM Tube 30 GM TOPICAL ×2 (08:45→10:09)
[2017-11-29] MEDS: BUPIVACAINE LIPOSOME/PF 20 ML VIAL OPERA.SITE (10:30)
--- NOTE | 2017-11-29 10:53 | PCM.OPRPT ---
Problem List (1) Diverticulitis Status: Acute Report of Operation Date of Procedure: 11/29/17 Pre-Operative Diagnosis: Recurrent bouts of diverticulitis with previous abscess Post-Operative Diagnosis: Same with intra-abdominal adhesions Surgery/Procedure Performed:: Laparoscopic left colectomy Description of Surgical Findings:: Timeout and informed consent was obtained at 62-year-old gentleman was taken to the operating room. He was placed on the table. Underwent general tracheal intubation anesthesia. Cefotetan 2 g given intravenous preoperatively. He underwent general endotracheal intubation anesthesia. He was placed on low lithotomy position on a beanbag. Careful attention was paid to padding all surfaces. The abdomen and perineum were sterilely prepped draped. [place] draping was used for the abdomen. To the right of the umbilicus 5 mm incision was created and using a c4cast.comiport technology [place] was gained to the abdomen cleanly. Then 2 more following trochars were placed in the right lower quadrant. Inspection revealed that there were adhesions of sigmoid colon the left pelvic sidewall there were adhesions of the sigmoid to the anterior low midline abdominal wall close to the urinary bladder. These adhesions were taken down with a combination of harmonic scalpel and sharp scissor dissection. That demonstrated ongoing induration of the proximal sigmoid. I was able to elevate the sigmoid made a window in the mesentery dissected down to the peritoneal reflection. Elevated the entire white line of Toldt all the way up to the spleen identified the course of the left ureter. Was then able to completely elevate mobilized the left colon quite nicely. Having now completely mobilized the left colon I completely transected the mesentery down to the peritoneal reflection. I used 2 firings of a 45 mm [place] with green loads to transect the rectum. This then allowed me better visualization of the colon more proximally in order to get better mobilization due to the peak of the disease being still fed by the inferior mesenteric artery I did secure the inferior mesenteric artery with 2 large Hem-o-barbie clips proximally and distally and I did that on several sessions transecting close to the root of the mesentery I could then further used the harmonic to further elevate the left colon. Having achieved that now I made a Pfannenstiel incision suprapubically. That was approximately 6 cm long. Dissected down through the substance tissue the fascia was incised transversely and then split vertically I placed a small wound protector exited the bowel. There was induration the bowel which required me to slightly enlarged that incision to allow to get the bowel out was able to 100 nicely remove the bowel complete my transection of the mesentery with the harmonic scalpel and interrupted 0 Vicryl suture ligatures was able to clearly see the demarcation of the healthy bowel and the devitalized bowel. Placed a [place] clamp across healthy bowel transected that placed a lip suture of 2-0 Prolene. I inserted a 33 mm antral and secured that with the pursestring. Hemostasis was nicely intact bowel appear to be viable and dry flap back within the abdomen. I then irrigated the rectal pouch with some dilute Betadine solution. I used well-lubricated sizers to see that I was nicely at the peritoneal reflection that he inserted the stapler per rectum right up to the apex of the staple line. I exited the trocar mated it with the anvil and watch the 2 being applied to each other I then fired the device. I released the device removed inspected the donuts that was completely intact. I then did a rigid sigmoidoscopy was able to visualize the anastomosis was noted be widely patent with no bleeding. Air was insufflated and there was no air leak. The pelvis was irrigated nicely intact hemostasis intact small bowel is in normal position I placed the greater omentum overlying been very minimal blood loss throughout the procedure. The 5 mm trochars were removed. Now early in the case however I did do a tap block this was done with 100 cc of diluted Exparel. 20 cc was diluted down to 800 cc total. It was used to perform a tap block under laparoscopic visualization and this was performed bilaterally. I felt that I did get good benefit from that block. To inject appropriately. In addition I then placed local around the incisions themselves. The abdomen was allowed to deflate CO2 the peritoneum at the Pfannenstiel site was closed with running 0 Vicryl and then the fascia was approximated transversely with a running 0 PDS. Wounds were irrigated. The skin edges were approximated running septic or 4 Monocryl. Steri-Strips Telfa and OpSite dressings applied. Sponge and instrument and needle counts reported the surgeon be correct. Blood loss was minimal. Specimens included sigmoid colon of the very generous segment removing the chronic inflammatory process and a adequate length of colon in order to inhibit recurrence. Drains none. Blood loss minimal. Kirk Villareal M.D., F.A.C.S. Type of Anesthesia:: General Anesthesiologist: Orion Archibald
--- NOTE | 2017-11-29 14:45 | CASEMGMT ---
SEE RN CM ASSESS LINK: D/C PLAN: HOME Intro self and role to RN CM. Pt sitting up in bed, awake/alert/oriented. , Abida, @ bedside. Pt agreeable to assessment and all questions answered appropriately. -Discussion re: advanced directives and pt states is interested in more information. SW consult made. Pt given Adv Dir packet. -Lives with , drives, requires no DME and no needs identified, denies other needs, and denies having any further questions at this time. CM to continue to follow for any further discharge planning needs that may arise. Terrence BSN RN CM
[2017-11-29] MEDS: 0.9% NaCl Peripheral Flush Adult/Peds IV (14:49)
[2017-11-29] MEDS: Ketorolac 15 MG/ML Vial IV ×2 (14:49→18:27)
--- NOTE | 2017-11-29 21:16 | NURSING ---
pt states that he dose not get the flu or pneumonia vaccine he dose not believe in them.
[2017-11-29] MEDS: Docusate Sodium 100 MG Capsule PO (21:18)
[2017-11-30] MEDS: Ketorolac 15 MG/ML Vial IV ×3 (00:01→11:37)
[2017-11-30] MEDS: Acetaminophen 500 MG Tablet 1000 MG PO ×2 (00:01→11:37)
[2017-11-30] MEDS: 0.9% NaCl Peripheral Flush Adult/Peds IV ×3 (00:01→11:38)
[2017-11-30 03:27] VITALS: BP 114/72; PULSE 66; RESP 16; TEMP 37.1; O2SAT 95
[2017-11-30 05:24] LABS: Hematocrit 41.5 % (40-54); Hemoglobin 13.6 g/dl (13.0-16.5); Mean Corp Hgb Conc 32.8 g/gl (32-36); Mean Corpuscular Volume 91.6 fL (80-94); Mean Platelet Vol. 10.2 fl (6.2-12.0); Platelet Count 209 K/mm3 (150-450); RBC Distribution Width CV 13.5 % (11.6-14.6); RBC Distribution Width SD 44.6 fl (35.1-43.9); Red Blood Count 4.53 M/mm3 (4.6-6.2); White Blood Count 9.6 K/mm3 (4.4-11.0)
[2017-11-30 05:28] LABS: Scan Indicated on CBC? Y/N NO
--- NOTE | 2017-11-30 06:17 | PCM.PN.SRG ---
Subjective: Pt comfortable and doing well No nausea, no flatus Able to ambulate well - Physical Exam General: Alert, Oriented x3, Cooperative, No apparent distress HEENT: Atraumatic Oral: Moist Mucosa Lungs: Clear to auscultation Cardiovascular: Regular rate, Regular Rhythm Abdomen: Soft, Hypoactive Bowel Sounds, Distended Vital Signs Temp Pulse Resp BP Pulse Ox 98.7 F 66 16 114/72 95 11/30/17 03:27 11/30/17 03:27 11/30/17 03:27 11/30/17 03:27 11/30/17 03:27 Oxygen Flow Rate (L/min) 6 Oxygen Delivery Method Room Air Weight: 195 lb 12.328 oz Body Mass Index (BMI) 25.8 Intake and Output for Last 24 Hours 11/28/17 11/29/17 11/30/17 23:59 23:59 23:59 Intake Total 1928 / 1928 873 / 873 Output Total 675 / 675 1850 / 1850 Balance 1253 / 1253 -977 / -977 Laboratory Tests Past 24 Hrs 11/30/17 11/30/17 05:10 05:10 WBC 9.6 RBC 4.53 L Hgb 13.6 Hct 41.5 MCV 91.6 MCH 30.0 MCHC 32.8 RDW 13.5 RDW Differential 44.6 H Plt Count 209 MPV 10.2 Sodium Pending Potassium Pending Chloride Pending Carbon Dioxide Pending Anion Gap Pending BUN Pending Creatinine Pending Est GFR (MDRD) Af Amer Pending Est GFR (MDRD) Non-Af Pending BUN/Creatinine Ratio Pending Glucose Pending Calcium Pending Medical Necessity - Tobacco Use Smoking Status: Former smoker Tobacco Use: Non-smoker Assessment/Plan All Active Problems (Last Updated 10/13/17 @ 15:38 by Sarah Quintero) Diverticulitis (Acute) Will remove herron. Pt has h/o severe retention Will advance diet Hopeful home later today
[2017-11-30 06:18] LABS: Anion Gap 7 (5-15); BUN 7 mg/dL (7-18); BUN/Creat Ratio 6.7 RATIO (10-20); Calcium,Total 8.6 mg/dL (8.5-10.1); Chloride 103 mmol/L (98-107); Creatinine, Serum 1.05 mg/dL (0.70-1.30); EST Glomerular Filtration Rate 76 mL/min (>60); Est Glom Filt Rate - Afr Amer 92 mL/min (>60); Estimated Creatinine Clearance 81.38 ml/min; Glucose 108 mg/dL (74-106); Potassium 4.3 mmol/L (3.5-5.1); Sodium Level 140 mmol/L (136-145)
--- NOTE | 2017-11-30 07:08 | DCINST_ITS ---
Discharge Diet: - - Transitional diet. Please refer to menu provided and folder with menu insert Discharge Activity: May Not Drive - 5 days May shower in (days): 1 Lifting Restrictions: 10 pounds Call your doctor if your incision/area has: Continuous Slow Oozing, Sudden Increased Bleeding, Increased Pain/ Swelling, Increased Redness, Foul Smelling Discharge, Swelling at the incision site Call your doctor if you observe: Fever of 101 or Higher, Coldness, Increased Pain Suture Line Care: Avoid Pulling/Pushing, Avoid Pinching/Bending Change Dressing in (Days):: 2 - Leave steri-strips intact for 1 week Cleanse incision/area with: Soap & Water Allergies/Adverse Reactions: Allergies No Known Allergies Allergy (Verified 11/29/17 05:43) Medications to take at Discharge Finasteride [Proscar] 5 mg PO DAILY 09/14/17 Multivitamins,Therapeutic [Multivitamin] 1 tab PO DAILY 09/14/17 Tamsulosin HCl [Flomax] 0.4 mg PO DAILY 09/14/17 Psyllium Husk (with Sugar) [Metamucil Powder] 575 gm PO DAILY 11/22/17 Hydrocodone Bitart/Apap 5-325 [[place] 5MG-325MG] 1 tablet PO Q6H PRN PRN 3 Days # 8 tablet 11/29/17 The following prescriptions were given: Hydrocodone Bitart/Apap 5-325 [[place] 5MG-325MG] 1 tablet PO Q6H PRN PRN 3 Days # 8 tablet PRN Reason: Pain Primary Care Physician: Henry Salinas MD [Primary Care Provider] - Test Results: Test results from this visit will be discussed in further detail at your follow- up appointment, if applicable. Please Follow Up With: Loreto Judge PA-C - [phone] Proposed Discharge Date: 11/30/17
[2017-11-30 07:30] VITALS: O2SAT 98
[2017-11-30 07:49] VITALS: BP 115/72; PULSE 63; RESP 16; TEMP 36.9; O2SAT 97
[2017-11-30] MEDS: Finasteride 5 MG Tablet PO (08:02)
[2017-11-30] MEDS: Tamsulosin HCl 0.4 MG Capsule PO (08:02)
[2017-11-30] MEDS: Docusate Sodium 100 MG Capsule PO (08:02)
--- NOTE | 2017-11-30 08:03 | NURSING ---
pt requested AM meds at this time- as he takes at home.
[2017-11-30] MEDS: Psyllium 1 PACKET PO (08:06)
--- NOTE | 2017-11-30 11:33 | NURSING ---
patient ambulating halls consistently t/o morning. Able to urinate 425- clear straw yellow urine. pt reports edematous and purplish bruising in color- pt educated about elevating to assist with resolving edema.
[2017-11-30] MEDS: Enoxaparin 40 MG/0.4 ML Syringe SC (11:38)
--- NOTE | 2017-11-30 12:07 | CASEMGMT ---
SW met w/pt in regard to LW/POA. Pt does not want to complete the forms, but did want additional information. SW reviewed the forms w/the pt. SW gave pt this SW's card, let him know if he decides would like to complete the forms, can call SW to set up a time and SW can assist. Pt states understanding. Otherwise, no further needs are anticipated. SW remains available should any needs arise. MEDHAT Dyson, CHAIR
[2017-11-30 12:09] VITALS: BP 117/67; PULSE 73; RESP 18; TEMP 36.4; O2SAT 98
== END 2017-11-30 15:22 | disposition home or self-care (01) | DRG 331 ==
LOC: MS2 05:24
PROVIDERS: Admitting Provider Surgery; Family Provider Internal Medicine; PCP Internal Medicine; Visit Provider Surgery
PROC: 0DTN0ZZ Resection of Sigmoid Colon, Open Approach (ICD-10-PCS; CPT 44204; principal; 2017-11-29 06:50)
DX: K57.32 Diverticulitis of large intestine without perforation or abscess without bleeding (principal); E78.5 Hyperlipidemia, unspecified; N40.0 Benign prostatic hyperplasia without lower urinary tract symptoms; K66.0 Peritoneal adhesions (postprocedural) (postinfection)
CPT/HCPCS: 36415; 80048; 82962; 85027; 88304; 88305; 88307; 93005; 94762; J7050; J7120; A4216; J2405

== ENCOUNTER 2018-02-14 09:31 | Day surgery (SDC) | payer OTHER, SELFPAY ==
[2018-02-07 14:08] VITALS: BP 119/74; PULSE 68; RESP 16; TEMP 36.9; O2SAT 96; BMI 25.7
[2018-02-07 15:59] LABS: Color, Urine Yellow (Yellow); Glucose, Dipstick Normal (Normal); Ketone-Dipstick 5 mg/dl (Negative); Leukocyte Esterase-Dipstick Negative /ul (Negative); Nitrite-Dipstick Negative (Negative); Occult Blood-Urine Negative /ul (Negative); Protein-Dipstick Negative (Negative); Urine Bilirubin Dipstick Negative (Negative); Urine Clarity Clear (Clear); Urine Urobilinogen Normal (Normal)
[2018-02-14] VITALS (10 sets, daily range): BP systolic 98–133; BP diastolic 55–86; PULSE 52–68; RESP 16–18; TEMP 36.1–37.2; O2SAT 96–100; BMI 25.7
--- NOTE | 2018-02-14 10:21 | DCINST_ITS ---
Discharge Diet: Light diet - advance as tolerated Discharge Activity: Return to Normal Activity Call your doctor if your incision/area has: Continuous Slow Oozing, Sudden Increased Bleeding, Increased Pain/ Swelling, Increased Redness, Foul Smelling Discharge, Swelling at the incision site Call your doctor if you observe: Fever of 101 or Higher Suture Line Care: Avoid Pulling/Pushing, Avoid Pinching/Bending Instructions: Transurethral Resection of the Prostate (TURP): Home Recovery Allergies/Adverse Reactions: Allergies No Known Allergies Allergy (Verified 02/07/18 14:03) Medications to take at Discharge Finasteride [Proscar] 5 mg PO DAILY 09/14/17 Multivitamins,Therapeutic [Multivitamin] 1 tab PO DAILY 09/14/17 Tamsulosin HCl [Flomax] 0.4 mg PO DAILY 09/14/17 Psyllium Husk (with Sugar) [Metamucil Powder] 575 gm PO DAILY 11/22/17 Diclofenac/Lidocaine/Tape [Trixylitral 1.5%-3.88% Kit] 1 each TP PRN PRN 02/07/18 Acetaminophen [Tylenol Extra Strength] 500 mg PO Q4H PRN PRN #20 tablet 02/14/18 Ciprofloxacin [Cipro] 500 mg PO BID #10 tablet 02/14/18 Ibuprofen 600 mg PO Q6H PRN PRN #20 tablet 02/14/18 The following prescriptions were given: Acetaminophen [Tylenol Extra Strength] 500 mg PO Q4H PRN PRN #20 tablet PRN Reason: Pain Ibuprofen 600 mg PO Q6H PRN PRN #20 tablet PRN Reason: Pain Ciprofloxacin [Cipro] 500 mg PO BID #10 tablet Primary Care Physician: Henry Salinas MD [Primary Care Provider] - Test Results: Test results from this visit will be discussed in further detail at your follow- up appointment, if applicable. Please Follow Up With: Binu Greene MD When: in 2 weeks, please call to make an appointment.
[2018-02-14] MEDS: Cefazolin 2 GM in 0.9% Normal Saline 100 ML IV (10:28)
--- NOTE | 2018-02-14 11:00 | PROS_PTH ---
PATIENT: WING ORTIZ LOC: [facility] [place] U#:[id number] AGE/SX: 62/M ROOM: RE02/14/[address]: Dr. Binu Greene MD : 1955 BED: DIS: 02/15/2018 SPEC #: [id number] RECD: 02/14/18 15:27 STATUS: DOM REMaren #: [id number] RONALD: 02/14/18 11:[address]: Binu Greene DEPT: SURGICAL PATHOLOGY RECD BY: Rufino Rivera ENTERED: 02/15/18 08:10 SP TYPE: TURP OTHR DR: Dr. Henry Salinas MD Tissues: Prostate, NOS Procedures: Surgery Specimen Level IV HEADER OPERATION: Cysto, TUR, prostate, Olympus PRE-OP DIAGNOSIS: Benign prostatic hyperplasia with lower urinary tract symptoms TISSUE SUBMITTED: Prostate tissue MICROSCOPIC DIAGNOSIS Prostate, transurethral resection: Benign nodular hyperplasia, glandular and stromal types. Mild chronic inflammation. AM:alisha 02/16/18 MICROSCOPIC DESCRIPTION Slides are reviewed. GROSS DESCRIPTION Received is one container labeled with the patient's name and designated prostate tissue. The specimen consists of multiple irregular fragments of pink-wolfe, rubbery, soft tissue that in aggregate weigh 35 gm and measure in aggregate 8 x 8 x 4 cm. The entire specimen is submitted in 12 cassettes. / SJ:alisha 02/15/18 TC:3 CPT: 20737
--- NOTE | 2018-02-14 12:00 | PCM.OPRPT ---
Report of Operation Date of Procedure: 02/14/18 Pre-Operative Diagnosis: BPH with obstruction Post-Operative Diagnosis: Same Surgery/Procedure Performed:: Transurethral resection of the prostate Description of Surgical Findings:: 62-year-old male taken back to the operating room he has a very large obstructive prostate with large obstructive large median lobe and large lateral lobes causing significant amount obstruction he has been on maximal medical therapy and at this point we will proceed with a transurethral resection of the prostate to relieve the obstruction. Procedure note patient was taken back to the operating room at the smooth induction of anesthesia he was placed supine on the table and then in dorsal lithotomy position. Penis and testicles are prepped and draped the usual sterile fashion, went into the bladder with a 26 Albanian continuous flow Olympus resectoscope with the bipolar system, the entire length of the urethra was normal, the sphincter was normal, identified the verumontanum, identified very large obstructive prostate with large median lobe protruding into the bladder and large bilateral hypertrophy, I then resected the median lobe and then resected the right lobe and then resected the left lobe after a complete resection of all the tissue had a wide open channel from the verumontanum all the way to the bladder neck with no obstruction obtained hemostasis did a very careful final resection of the apical tissue, did a flow test and had a nice open flow, looked back in with a 24 Albanian noncontinuous flow resectoscope and the sphincter was intact coapted nicely no flapping or obstructive tissue was noticed from the sphincter into the bladder neck had a nice open channel. Elect out all the chips on the prostate put on continuous bladder irrigation the urine was fairly clear and the patient's anesthetic is currently being reversed. Type of Anesthesia:: General Drains: 22fr 3 way - Admit VTE Documentation VTE Present on Admission: No VTE Mechan Device Prophylaxis: SCD's
[2018-02-14] MEDS: 0.9% Normal Saline 1,000 ML 75 ML IV (16:31)
[2018-02-14] MEDS: Tamsulosin HCl 0.4 MG Capsule PO (17:53)
[2018-02-14] MEDS: Docusate Sodium 100 MG Capsule PO (21:22)
[2018-02-15] MEDS: 0.9% Normal Saline 1,000 ML 75 ML IV (05:15)
[2018-02-15 05:16] VITALS: BP 111/68; PULSE 63; RESP 18; TEMP 36.6; O2SAT 99
[2018-02-15 08:45] VITALS: BP 117/68; PULSE 76; RESP 16; TEMP 36.7; O2SAT 98
[2018-02-15] MEDS: Multivitamins,Therapeutic Tablet 1 TABLET PO (09:29)
[2018-02-15] MEDS: Pantoprazole Sodium 40 MG Tablet PO (09:29)
[2018-02-15] MEDS: Finasteride 5 MG Tablet PO (09:30)
[2018-02-15] MEDS: Docusate Sodium 100 MG Capsule PO (09:30)
[2018-02-15] MEDS: Psyllium 1 PACKET PO (09:35)
[2018-02-15 14:30] VITALS: BP 119/75; PULSE 76; RESP 16; TEMP 36.7; O2SAT 97
== END 2018-02-15 16:28 | disposition home or self-care (01) ==
LOC: SDC 09:31 → AC 09:43 → MS3 02-15 07:32
PROVIDERS: Family Provider Internal Medicine; PCP Internal Medicine; Referring Provider Urology; Visit Provider Urology
PROC: (CPT 52630; principal; 2018-02-14 10:50)
DX: N40.1 Benign prostatic hyperplasia with lower urinary tract symptoms (principal); R97.20 Elevated prostate specific antigen [PSA]; R39.12 Poor urinary stream; R33.9 Retention of urine, unspecified; E78.00 Pure hypercholesterolemia, unspecified; Z87.891 Personal history of nicotine dependence
CPT/HCPCS: 52630; 81002; 87086; 88305; J7030; J7120; J2405

== ENCOUNTER → 2019-02-25 09:15 | Outpatient (CLI) | payer OTHER, SELFPAY ==
[2019-02-25 08:55] VITALS: BMI 27.0
--- NOTE | 2019-02-25 09:16 | RAD_ITS ---
STUDY: X-RAY - RIGHT KNEE REASON FOR EXAM: Male, 63 years old. Anterior knee pain TECHNIQUE: 4 view(s) of the knee. COMPARISON: None. FINDINGS: Normal visualized distal femur. Normal visualized proximal tibia and fibula. Normal proximal tibiofibular articulation. Normal medial femorotibial compartment. Normal lateral femorotibial compartment. There is mild degenerative arthrosis of the patellofemoral articulation. There is a soft tissue prominence in the suprapatellar region suggesting a small volume joint effusion. The soft tissue structures are unremarkable. RAD/Knee 4 or More Views IMPRESSION: Small joint effusion. Electronically Signed: Toney Schaeffer MD (Brooks) at 22:32 EST , Service support ,
== END ==
PROVIDERS: Family Provider Internal Medicine; PCP Internal Medicine; Referring Provider Orthopaedic Surgery; Visit Provider Orthopaedic Surgery
DX: M25.561 Pain in right knee (principal)
CPT/HCPCS: 73564

== ENCOUNTER → 2019-03-07 12:57 | Outpatient (CLI) | payer OTHER, SELFPAY ==
[2019-02-25 08:55] VITALS: BMI 27.0
--- NOTE | 2019-03-07 13:00 | MRI_ITS ---
STUDY: MRI RIGHT KNEE REASON FOR EXAM: Male, 63 years old. Pain. Twisting injury 2 months ago. TECHNIQUE: Standardized fat and water weighted pulse sequences were obtained in all 3 orthogonal planes. COMPARISON: X-ray February 25, 2019. FINDINGS: There is medial meniscus tear of the posterior horn, series 3 images through . There is diffuse, less than 50% thickness articular cartilage loss of the medial femorotibial compartment. Normal medial femoral condyle and tibial plateau. Normal medial collateral ligamentous complex (MCL). Normal distal semimembranosus, gracilis and semitendinosus tendons. Normal lateral meniscus. Normal hyaline cartilage of the lateral femorotibial compartment. Normal lateral femoral condyle and tibial plateau. Normal proximal tibiofibular articulation. Normal lateral collateral (fibular) ligament. Normal popliteus tendon. Normal biceps femoris tendon. Normal anterior cruciate ligament (ACL). Normal posterior cruciate ligament (PCL). There is arthrosis of the patellofemoral articulation. There is diffuse, full thickness articular cartilage loss of the patellofemoral compartment. There is spurring and edema of the patella. Normal medial and lateral patellar retinaculum. Normal quadriceps tendon. Normal patellar tendon. Normal Hoffa''s fat pad. There is a small volume joint effusion. There is 0.9 cm diminished signal loose body at the posterior joint. There is a 4.9 cm Thao''s cyst. The soft tissues are unremarkable. The otherwise visualized osseous structures are unremarkable. MRI/Lower Ext Joint Only (Routine) IMPRESSION: Medial meniscus tear. Patellofemoral degenerative change. Joint effusion with loose body and popliteal cyst. Electronically Signed: Zachery Jesus MD at 18:15 EST , Service support ,
--- NOTE | 2019-03-07 13:00 | RAD_ITS ---
STUDY: X-RAY - ORBITS REASON FOR EXAM: Male, 63 years old. PRE MRI TECHNIQUE: 2 view(s) of the orbits were obtained. COMPARISON: None. FINDINGS: Normal bilateral orbits without a metallic orbital foreign body. Normal visualized facial bones. There is increased opacity of the right maxillary sinus suggesting sinusitis. The soft tissue structures are unremarkable. RAD/Orbits for Foreign Body IMPRESSION: No demonstrated metallic orbital foreign body. The patient is cleared for an MRI examination. There is possible right maxillary sinusitis. Electronically Signed: Simona Conklin, at 14:25 EST Tel , Service support ,
== END ==
PROVIDERS: Family Provider Internal Medicine; PCP Internal Medicine; Referring Provider Orthopaedic Surgery; Visit Provider Orthopaedic Surgery
DX: M25.561 Pain in right knee (principal)
CPT/HCPCS: 70030; 73721

== ENCOUNTER 2019-04-23 08:56 | Day surgery (SDC) | payer OTHER, SELFPAY ==
[2019-04-10 09:16] VITALS: BMI 27.0
[2019-04-23 09:13] VITALS: BP 123/88; PULSE 75; RESP 16; TEMP 36.4; O2SAT 100; BMI 26.9
[2019-04-23] MEDS: Lactated Ringers 1,000 ML 100 ML IV (09:29)
[2019-04-23] MEDS: Cefazolin 2 GM in 0.9% Normal Saline 100 ML IV (10:06)
[2019-04-23] MEDS: Epinephrine (1 mg/ml) 1 MG/ML VIAL (10:31)
[2019-04-23] MEDS: Bupiv/Epi 0.5% Mpf 30 ML Vial (10:31)
[2019-04-23] MEDS: Bupivacaine Mpf 0.5% 30 ML VIAL (10:54)
[2019-04-23] MEDS: morphine PF (epidural) 5 MG/10 ML Vial (10:54)
[2019-04-23] MEDS: MethylPREDNISolone Acetate 80 MG/ML Vial (10:54)
--- NOTE | 2019-04-23 10:55 | PCM.HP.BLA ---
History and Physical Date of Admission: 04/23/19 Intake Vital Signs 04/10/19 BMI 27.0 Intake Visit Reasons: right knee Chief Complaint: right knee Is patient in pain?: Yes Pain scale (1-10): 5 Allergies No Known Allergies Allergy (Verified 03/11/19 15:21) Medications Multivitamins,Therapeutic [Multivitamin] 1 tab PO DAILY 09/14/17 [History Confirmed 04/10/19] Psyllium Husk (with Sugar) [Metamucil Powder] 575 gm PO DAILY 11/22/17 [History Confirmed 04/10/19] meloxicam 15 mg tablet 15 mg PO DAILY #30 tab 02/25/19 [Rx Confirmed 04/10/19] REPLACED BY [facility] Medical History (Updated 02/14/18 @ 12:03 by Binu Greene MD) Diverticulitis (Acute) BPH (benign prostatic hyperplasia) (Chronic) Dyslipidemia (Chronic) Surgical History (Updated 02/14/18 @ 12:03 by Binu Greene MD) History of colectomy (Acute ~11/2017) History of colonoscopy (Acute) History of tooth extraction (Acute) Social History (Updated 04/10/19 @ 16:26 by Mac Florez DO) Smoking Status: Former smoker HPI right knee: Details: Parts of this documentation were recorded by a scribe, this documentation accurately reflects the service provided and the decisions made by me, Mac Florez DO 04/10/19 0915. WING ORTIZ is a 63 year old M here today for right knee pain. He complains of anterior and medial knee pain, he states that some days are more difficult. He has pain with the stairs but denies any clicking or locking. He does have stiffness after being in one position for too long. He would like to discuss surgery today. Denies any bracing but did try a knee sleeve. Denies numbness, tingling or other associated symptoms. Ortho Exam Right Knee Skin/Wound: No erythema, No ecchymosis, No swelling Contralateral Normal: Yes Homans Sign: No Knee ROM: Yes ROM-Extension -20 to 0, No ROM-Flexion 0-140 (120) Examination: Yes Med jt line tenderness, Yes Pain with flexion, Yes Pravin's Test Stability: NML: Anterior Drawer, NML: Posterior Drawer Supplemental Info 02/25/2019 x-ray right knee: Mild patellofemoral spurring Assessment & Plan Problems 1. Tear of medial meniscus of right knee, current, unspecified tear type, subsequent encounter S83.860D 2. Primary osteoarthritis of right knee M17.11 Plan Explained that doing the arthroscopy can aid in the relief of the sharp pain but due to the OA noted in the medial and PF compartments he can have a longer recovery and more swelling. Reviewed the possibility of a steroid injection 6wks post op if needed. He may still need a TKA later in life. Reviewed the pre-operative plans with the patient. Risks and benefits of the procedure were fully explained, including but not limited to infection, neurovascular injury, continued pain, arthritis, stiffness, need for further surgery, re-injury, DVT, PE, general risks of anesthesia, and loss of limb or life. The patient understands all the risks and does wish to proceed with written consent. Follow up post op or sooner if pain, swelling, numbness or associated symptoms, or concerns develop. All questions answered. Patient in agreement of plan. Coding Level of Care Code Off vis,est,level 3 Diagnoses Tear of medial meniscus of right knee, current, unspecified tear type, subsequent encounter S83.703D ??Encounter type: subsequent encounter ??Meniscus of knee: medial ??Meniscus tear of knee type: unspecified type ??Tear current or old: current Primary osteoarthritis of right knee M17.11 ??Osteoarthritis type: primary I have re-examined the patient. There are no clinical changes since date of exam
--- NOTE | 2019-04-23 10:56 | OP.PCM_ITS ---
Report of Operation Date of Procedure: 04/23/19 Description of Surgical Findings:: Preop diagnosis: Right knee medial meniscus tear DJD Postoperative diagnosis: Right knee complex tear posterior horn medial meniscus grade 3 cartilage wear medial compartment trochlea small area and lateral femoral condyle grade 4 patella Procedure: Right knee arthroscopic partial medial meniscectomy chondroplasty medial patellofemoral compartment Anesthesia: General Estimated blood loss: 5 mL Tourniquet time: 22 minutes 300 mmHg Complications: none Indication for procedure: This is a 63-year-old male patient who has had ongoing mechanical symptoms and knee pain with MRI evidence of medial meniscus tear wish to proceed with an elective surgical intervention the patient did wish to proceed with an elective arthroscopic surgery to attempt to alleviate the symptoms. Risk benefits and alternatives of the procedure were reviewed including risk of bleeding infection nerve artery tissue damage need for further surgery continued pain and expected postoperative course. Procedure: The patient was met in the preoperative holding area. The operative extremity was identified by both patient and physician and family and marked. Patient was brought back to the operating room on a wheeled cart and transferred to the operating table in the supine position. Anesthesia was started. A well- padded tourniquet was placed on the operative extremity. A lower extremity leg benjamin was secured to the operative extremity. The contralateral extremity was well-padded and the end of the bed was flexed to 90 degrees. The patient was prepped and draped in the usual sterile fashion. A timeout was called to ensure the proper patient, procedure, and extremity were being contemplated. 0.5% Marcaine with epinephrine was injected into the planned incisional areas under the skin only. An Esmarch was used to exsanguinate the extremity and the tourniquet was inflated. An 11 blade scalpel was used to make a stab incision in the anterior lateral portal. The arthroscope was inserted into the intercondylar notch and inflow and outflow tubes were attached. Arthroscopic visualization began. The medial compartment was entered. An 18-gauge spinal needle was used to establish the placement for anterior medial portal. An 11 blade scalpel was used to make a stab incision. Blunt probe was inserted followed by a meniscal probe. Complex tear of the medial meniscus posterior horn as well as grade 3 cartilage wear and loose cartilage flaps of the medial femoral condyle the ACL was found to be intact. The lateral compartment was entered grade III chondromalacia of the medial femoral condyle weightbearing portion loose cartilage flaps no meniscal pathology The arthroscope was switched to the medial portal to complete the procedure. The medial and lateral gutters were inspected. The patellofemoral joint was inspected had grade 4 cartilage wear diffusely. There was good patellar tracking. The knee was thoroughly irrigated and drained. An intra-articular injection with 5 cc 0.5% Marcaine plain 4 mg of morphine and 40 mg of Depo-Medrol was injected intra- articularly. The arthroscope was removed the portals were closed with 3-0 nylon arthroscopic stitches. Followed by Xeroform 4 x 4's ABDs web roll and an Mark wrap. The tourniquet was let down and the drapes were removed. All counts were correct. The patient was brought back to the PACU in stable condition.
--- NOTE | 2019-04-23 10:58 | DCINST_ITS ---
Discharge Diet: No Restrictions Weight Bearing Status: Weight bearing as tolerated Call your doctor if you observe: Fever of 101 or Higher, Shortness of breath, Chest pain Additional Instructions: Ice and elevate next 72 hours .keep dressing on clean and dry for 48 hours then may remove begin showering daily but do not submerge in tub or pool. After shower may apply Band-Aids . Encourage knee range of motion weightbearing as tolerated, use crutches until confident in knee then may discontinue. No strenuous activity. When not ambulating keep iced and elevated next 72 hours. Allergies/Adverse Reactions: Allergies No Known Allergies Allergy (Verified 04/23/19 09:08) Medications to take at Discharge Multivitamins,Therapeutic [Multivitamin] 1 tab PO DAILY 09/14/17 Psyllium Husk (with Sugar) [Metamucil Powder] 575 gm PO DAILY 11/22/17 Glucos Sul 2Kcl/MSM/Chond/C/Mn [Glucosamine Chondroitin Cap] 1 ea PO DAILY 04/17/19 Oxycodone HCl/Acetaminophen [Percocet 5/325] 1 - 2 tab PO Q4H PRN PRN #40 tab 04/23/19 The following prescriptions were given: Oxycodone HCl/Acetaminophen [Percocet 5/325] 1 - 2 tab PO Q4H PRN PRN #40 tab PRN Reason: Pain Transmission Status: Sent to [facility] #30 Primary Care Physician: Henry Salinas MD [Primary Care Provider] - Test Results: Test results from this visit will be discussed in further detail at your follow- up appointment, if applicable. Please Follow Up With: Mac Florez DO - 2 weeks
[2019-04-23 11:06] VITALS: BP 123/88; BP 129/90; PULSE 60; RESP 14; TEMP 36.8; O2SAT 96
[2019-04-23 11:15] VITALS: BP 123/88; BP 125/87; PULSE 56; RESP 16; O2SAT 95
[2019-04-23 11:30] VITALS: BP 122/85; BP 123/88; PULSE 64; RESP 16; TEMP 36.1; O2SAT 97
[2019-04-23 12:24] VITALS: BP 123/88
== END 2019-04-23 12:26 | disposition home or self-care (01) ==
LOC: SDC 08:58 → AC 09:00
PROVIDERS: PCP Internal Medicine; Referring Provider Orthopaedic Surgery; Visit Provider Orthopaedic Surgery
PROC: (CPT 29870; principal; 2019-04-23 10:10)
DX: S83.231A Complex tear of medial meniscus, current injury, right knee, initial encounter (principal); X58.XXXA Exposure to other specified factors, initial encounter; M17.11 Unilateral primary osteoarthritis, right knee; M94.261 Chondromalacia, right knee; Z79.1 Long term (current) use of non-steroidal anti-inflammatories (NSAID); Z87.891 Personal history of nicotine dependence
CPT/HCPCS: 29881; J7120; J2405

== ENCOUNTER → 2019-07-15 11:21 | Outpatient (CLI) | payer OTHER, SELFPAY ==
[2019-05-06 07:56] VITALS: BMI 26.9
[2019-07-15 12:05] LABS: PSA,Total - Annual Screen 0.77 ng/mL (0.00-4.00)
== END ==
PROVIDERS: PCP Internal Medicine; Referring Provider Nurse Practitioner Adult Health; Visit Provider Nurse Practitioner Adult Health
DX: Z12.5 Encounter for screening for malignant neoplasm of prostate (principal)
CPT/HCPCS: 36415; 84153; G0103

== ENCOUNTER 2020-05-19 02:31 | Outpatient (RCR) | payer OTHER, SELFPAY ==
[2020-02-24 10:56] VITALS: BMI 26.4
[2020-05-19] MEDS: COVID-19 VACC, MRNA(PFIZER)/PF 30 MCG/0.3 ML SYRINGE IM (18:40)
[2020-06-09] MEDS: COVID-19 VACC, MRNA(PFIZER)/PF 30 MCG/0.3 ML SYRINGE IM (18:31)
== END 2020-08-18 23:59 ==
LOC: IMMUN 02:31
PROVIDERS: PCP Internal Medicine; Visit Provider Family Medicine
DX: Z23 Encounter for immunization (principal)
CPT/HCPCS: 0001A; 0002A; 91300

== ENCOUNTER → 2020-07-27 15:15 | Outpatient (CLI) | payer OTHER, SELFPAY ==
[2020-02-24 10:56] VITALS: BMI 26.4
[2020-07-27 17:15] LABS: PSA,Total - Annual Screen 0.81 ng/mL (0.00-4.00)
== END ==
PROVIDERS: PCP Internal Medicine; Referring Provider Nurse Practitioner Adult Health; Visit Provider Nurse Practitioner Adult Health
DX: Z12.5 Encounter for screening for malignant neoplasm of prostate (principal)
CPT/HCPCS: 36415; 84153; G0103

== ENCOUNTER → 2021-03-01 09:31 | Outpatient (CLI) | payer OTHER, SELFPAY ==
[2021-03-01 12:21] LABS: Absolute Lymphocyte Count 2.39 X10^3/uL (0.83-4.51); Absolute Neutrophil Count 3.2 X10^3/uL (2.0-7.7); Basophil# 0.07 X10^3/uL; Basophil% 1.1 % (0-1); Eosinophil# 0.15 X10^3/uL; Eosinophils% 2.3 % (0-5); Hematocrit 42.1 % (40-54); Hemoglobin 14.5 g/dL (13.0-16.5); Lymphocyte # 2.39 X10^3/ul (0.83-4.51); Lymphocyte % 36.9 % (19-41); Mean Corp Hgb Conc 34.4 g/dL (32-36); Mean Corpuscular Hgb 31.4 pg (27.0-32.0); Mean Corpuscular Volume 91.1 fL (80-94); Mean Platelet Vol. 10.5 fl (6.2-12.0); Monocyte# 0.66 X10^3/uL; Monocyte% 10.2 % (0-10); NRBC Flagged by Analyzer 0 % (0-5); Neutrophil # 3.17 X10^3/uL (2.7-7.7); Platelet Count 249 K/mm3 (150-450); RBC Distribution Width CV 12.5 % (11.6-14.6); RBC Distribution Width SD 41.5 fl (35.1-43.9); Red Blood Count 4.62 M/mm3 (4.6-6.2); White Blood Count 6.5 K/mm3 (4.4-11.0)
[2021-03-01 12:34] LABS: AST(SGOT) 32 U/L (15-37); Alanine Aminotransfer ALT/SGPT 56 U/L (16-61); Albumin, Serum 3.7 g/dL (3.2-5.0); Alkaline Phosphatase 61 U/L (45-117); Anion Gap 10 (5-15); BUN 15 mg/dL (7-18); BUN/Creat Ratio 15.2 RATIO (10-20); Calcium,Total 8.8 mg/dL (8.5-10.1); Chloride 104 mmol/L (98-107); Cholesterol 191 mg/dL (200); Creatinine, Serum 0.99 mg/dL (0.70-1.30); EST Glomerular Filtration Rate 80 mL/min (>60); Est Glom Filt Rate - Afr Amer 97 mL/min (>60); Globulin 3.8 g/dL (2.2-4.2); Glucose 105 mg/dL (74-106); High Density Lipoprotein 64 mg/dL; Potassium 3.8 mmol/L (3.5-5.1); Protein, Total 7.5 g/dL (6.4-8.2); Sodium Level 140 mmol/L (136-145); Triglycerides 101 mg/dL; Very Low Density Lipoprotein 20 mg/dL (5-40)
[2021-03-01 12:40] LABS: Vitamin D,25 Hydroxy 24.6 ng/mL
== END ==
PROVIDERS: PCP Internal Medicine; Visit Provider Internal Medicine
DX: E78.5 Hyperlipidemia, unspecified (principal); E55.9 Vitamin D deficiency, unspecified; Z90.79 Acquired absence of other genital organ(s); Z98.890 Other specified postprocedural states
CPT/HCPCS: 36415; 80053; 80061; 82306; 85025

== ENCOUNTER → 2021-08-02 | Outpatient (CLI) | payer MEDICARE, OTHER, SELFPAY ==
[2021-08-02 11:48] LABS: PSA,Total - Annual Screen 0.88 ng/mL (0.00-4.00)
== END | disposition home or self-care (01) ==
PROVIDERS: PCP Internal Medicine; Referring Provider Registered Nurse; Visit Provider Registered Nurse
DX: Z12.5 Encounter for screening for malignant neoplasm of prostate (principal)
CPT/HCPCS: 36415; 84153; G0103

== ENCOUNTER → 2022-05-02 | Outpatient (CLI) | payer MEDICARE, OTHER, SELFPAY ==
--- NOTE | 2022-05-02 15:30 | RAD_ITS ---
INDICATION: Lumbar radiculopathy LOW BACK PAIN THAT LEAVES A BURNING SENSATION IN THE LEFT CALF EXAMINATION/TECHNIQUE: X-RAY - XR Spine Lumbar 2 or 3 Views COMPARISON: None. FINDINGS: Vertebral bodies are normal height. No definite fracture demonstrated. No subluxation. Disc space narrowing with osteophytes at essentially all levels. Facet arthropathy most pronounced at L4-5 and L5-S1. No paravertebral soft tissue mass identified. RAD/Lumbar Spine 2 or 3 Views IMPRESSION: No evidence of fracture or subluxation. Degenerative changes. Electronically Signed: Sabina Smith MD at 7:49 EST ,
[2022-05-02 15:37] LABS: Absolute Lymphocyte Count 2.66 X10^3/uL (0.83-4.51); Absolute Neutrophil Count 5.3 X10^3/uL (2.0-7.7); Basophil# 0.08 X10^3/uL; Basophil% 0.9 % (0-1); Eosinophils% 1.1 % (0-5); Hematocrit 43.9 % (40-54); Hemoglobin 14.8 g/dL (13.0-16.5); Lymphocyte # 2.66 X10^3/ul (0.83-4.51); Lymphocyte % 29.5 % (19-41); Mean Corp Hgb Conc 33.7 g/dL (32-36); Mean Corpuscular Volume 91.8 fL (80-94); Mean Platelet Vol. 10.2 fl (6.2-12.0); Monocyte# 0.85 X10^3/uL; Monocyte% 9.4 % (0-10); NRBC Flagged by Analyzer 0 % (0-5); Neutrophil # 5.31 X10^3/uL (2.7-7.7); Neutrophil % 58.8 % (47-70); Platelet Count 227 K/mm3 (150-450); RBC Distribution Width CV 12.1 % (11.6-14.6); RBC Distribution Width SD 41.2 fl (35.1-43.9); Red Blood Count 4.78 M/mm3 (4.6-6.2)
[2022-05-02 15:53] LABS: D-Dimer Quantitative (DVT/PE) 0.33 FEU/ug/m (0.27-0.49)
[2022-05-02 15:57] LABS: Vitamin D,25 Hydroxy 24.7 ng/mL
[2022-05-02 16:01] LABS: AST(SGOT) 27 U/L (15-37); Alanine Aminotransfer ALT/SGPT 49 U/L (16-61); Albumin, Serum 3.8 g/dL (3.2-5.0); Alkaline Phosphatase 54 U/L (45-117); Anion Gap 5 (5-15); BUN 16 mg/dL (7-18); BUN/Creat Ratio 15.5 RATIO (10-20); Calcium,Total 9.1 mg/dL (8.5-10.1); Chloride 108 mmol/L (98-107); Cholesterol 196 mg/dL (200); Creatinine, Serum 1.03 mg/dL (0.70-1.30); EST Glomerular Filtration Rate 76 mL/min (>60); Est Glom Filt Rate - Afr Amer 93 mL/min (>60); Globulin 3.7 g/dL (2.2-4.2); Glucose 106 mg/dL (74-106); High Density Lipoprotein 68 mg/dL; Potassium 3.8 mmol/L (3.5-5.1); Protein, Total 7.5 g/dL (6.4-8.2); Sodium Level 141 mmol/L (136-145); Thyroid Stim Hormone (TSH) 1.48 uIU/mL (0.358-3.74); Triglycerides 130 mg/dL; Very Low Density Lipoprotein 26 mg/dL (5-40)
== END | disposition home or self-care (01) ==
PROVIDERS: PCP Internal Medicine; Referring Provider Internal Medicine; Visit Provider Internal Medicine
DX: M79.669 Pain in unspecified lower leg (principal); M54.16 Radiculopathy, lumbar region; E55.9 Vitamin D deficiency, unspecified; E78.5 Hyperlipidemia, unspecified; E78.1 Pure hyperglyceridemia
CPT/HCPCS: 36415; 72100; 80053; 80061; 82306; 84443; 85025; 85379

== ENCOUNTER → 2022-08-09 | Outpatient (CLI) | payer MEDICARE, OTHER, SELFPAY | END | disposition home or self-care (01) | LOC: LAB 15:54 | PROVIDERS: PCP Internal Medicine; Referring Provider Urology; Visit Provider Urology | DX: Z12.5 Encounter for screening for malignant neoplasm of prostate (principal) | CPT/HCPCS: 36415; 84153; G0103 ==

== ENCOUNTER → 2023-08-15 | Outpatient (CLI) | payer MEDICARE, OTHER, SELFPAY ==
[2023-08-15 11:59] LABS: PSA,Total - Annual Screen 1.02 ng/mL (0.00-4.00)
== END | disposition home or self-care (01) ==
LOC: LAB 10:55
PROVIDERS: PCP Internal Medicine; Referring Provider Nurse Practitioner; Visit Provider Nurse Practitioner
DX: Z12.5 Encounter for screening for malignant neoplasm of prostate (principal)
CPT/HCPCS: 36415; 84153; G0103

== ENCOUNTER → 2024-08-15 | Outpatient (CLI) | payer MEDICARE, OTHER, SELFPAY ==
[2024-08-15 14:28] LABS: PSA,Total - Annual Screen 1.42 ng/mL (0.02-4.00)
--- OUTSIDE RECORDS SUMMARY | 2024-08-15 21:12 | XMS RPT_ITS | CCD ---
Author Organization [facility] Care Team Providers Care Cat Driver Name Role Phone Dr. Anila Jordan Primary Care Provider Dr. Anila Jordan Attending Provider [phone] Anila Jordan Primary Care Unavailable DrydenEmma Attending Unavailable DrydenEmma Referring Unavailable Anila Jordan Referring Unavailable Anila Jordan Primary Care Unavailable Hayden Phillips Attending Unavailable Anila Jordan Referring Unavailable Mac Florez Attending Unavailable Anila Jordan Primary Care Unavailable Dominguez Cruz Attending Unavailable Anila Jordan Primary Care Unavailable Anila Jordan Attending Unavailable Anila Jordan Primary Care Unavailable Kirk Villareal Attending Unavailable Anila Jordan Referring Unavailable Anila Jordan Primary Care Unavailable Kirk Villareal Attending Unavailable Anila Jordan Referring Unavailable Anila Jordan Primary Care Unavailable Loreto Zurita Attending Unavailable Anila Jordan Referring Unavailable NikkiAnila Primary Care Unavailable Anila Jordan Referring Unavailable Anila Jordan Primary Care Unavailable Loreto Zurita Attending Unavailable Medications Current Medications Medication Drug Class(es) Dates Sig (Normalized) Sig (Original) Glucos Sul 0ezf-Bwv-Ntnvq-C-Mn (3 sources) Start: 04-17-2019 Glucos Sul 9try-Jpr-Krzln-C-Mn Active 1 EACH PO DAILY April 17, 2019 10:16am Start: 04-17-2019 Glucos Sul 2kc h-Woh-Xkbjx-C-Mn Active 1 EACH PO DAILY April 17, 2019 1:00am Start: 04-17-2019 Glucos Sul 2kc i-Mif-Spmda-C-Mn Active 1 EACH PO DAILY April 17, 2019 12:00am Multivit,Calc,Dyf-Nq-Z9-Lyco p (One-A-Day Men's Complete) 240 mcg-30 mcg- 300 mcg tablet (3 sources) Start: 02-21-2020 take 1 tablet by mouth once Multivit,Calc,Xrq-Hl-L6-Lycop (One-A-Day Men's Complete) 240 mcg-30 mcg- 300 mcg tablet Active TABLET PO February 21, 2020 9:03am Start: 02-21-2020 take 1 tablet by dia th once Multivit,Calc,Ccz-Ev-Q1-Lycop (One-A-Day Men's Complete) 240 mcg-30 mcg- 300 mcg tablet Active TABLET PO February 21, 2020 1:00am Start: 02-21-2020 take 1 tablet by dia th once Multivit,Calc,Eov-Af-A7-Lycop (One-A-Day Men's Complete) 240 mcg-30 mcg- 300 mcg tablet Active TABLET PO February 21, 2020 12:00am psyllium 3400 mg powder for oral suspension (3 sources) Start: 11-22-2017 take 575 g by mouth once daily Psyllium Husk (With Sugar) Active 575 GM PO DAILY November 22, 2017 12:00am vit d3 (2 sources) Start: 05-04-2022 take 500 [IU] by mouth once daily vit d3 Active PO 1 time daily May 04, 2022 1:00am 500 units daily Start: 05-04-2022 take 500 [IU] by dia th once daily vit d3 Active PO 1 time daily May 04, 2022 12:00am 500 units daily Completed/Discontinued Medications Medication Drug Class(es) Dates Sig (Normalized) Sig (Original) acetaminophen 500 mg oral tablet (3 sources) Start: 02-14-2018 End: 04-10-2019 take 500 mg by mouth every four hours as needed Acetaminophen Discontinued 500 MG PO EVERY 4 HOURS NEEDED February 14, 2018 1:00am April 10, 2019 4:21pm acetaminophen 325 mg / oxyCODONE hydrochloride 5 mg oral tablet (3 sources) Opioid Agonist Start: 04-23-2019 End: 02-21-2020 take 1 tablet by mouth every four hours as needed Oxycodone-Acetamin ophen Discontinued 1 - 2 TABLET PO EVERY 4 HOURS NEEDED April 23, 2019 February 21, 2020 9:03am ciprofloxacin 500 mg oral tablet (6 sources) Quinolone Antimicrobial Start: 02-14-2018 End: 02-25-2019 take 500 mg by mouth twice daily Ciprofloxacin Hcl Discontinued 500 MG PO TWICE A DAY February 14, 2018 1:00am February 25, 2019 10:05am Start: 09-16-2017 End: 10-13-2017 take 500 mg by mouth twice daily Ciprofloxacin Hcl Discontinued 500 MG PO TWICE A DAY 8 September 16, 2017 12:00am October 13, 2017 3:41pm Dextrin (3 sources) Start: 09-14-2017 End: 10-13-2017 take 350 g by mouth once daily Dextrin Discontinued 350 GM PO DAILY September 14, 2017 6:10pm October 13, 2017 3:41pm Start: 09-14-2017 End: 10-13-2017 take 350 g by mouth once daily Dextrin Discontinued 35 0 GM PO DAILY September 14, 2017 12:00am October 13, 2017 3:41pm Start: 09-14-2017 End: 10-13-2017 take 350 g by mouth once daily Dextrin Discontinued 35 0 GM PO DAILY September 13, 2017 11:00pm October 13, 2017 2:41pm Jobhwyjive-Enrtvditj-Sdkq (3 sources) Start: 02-07-2018 End: 02-25-2019 Drtgnohfkf-Zvbhjtpqp-Bpbv Discontinued 1 EACH TP NEEDED February 07, 2018 3:03pm February 25, 2019 10:05am Start: 02-07-2018 End: 02-25-2019 Aqotrjjpco-Fijmdamrx-Veok Di scontinued 1 EACH TP NEEDED February 07, 2018 1:00am February 25, 2019 10:05am Start: 02-07-2018 End: 02-25-2019 Vudbdbybgz-Rmiiddmhn-Qcby Di scontinued 1 EACH TP NEEDED February 07, 2018 12:00am February 25, 2019 9:05am finasteride 5 mg oral tablet (3 sources) 5-alpha Reductase Inhibitor Start: 09-14-2017 End: 02-25-2019 take 5 mg by mouth once daily Finasteride Discontinued 5 MG PO DAILY September 14, 2017 12:00am February 25, 2019 10:05am ibuprofen 600 mg oral tablet (3 sources) Nonsteroidal Anti-inflammatory Drug Start: 02-14-2018 End: 04-10-2019 take 600 mg by mouth every six hours as needed Ibuprofen Discontinued 600 MG PO EVERY 6 HOURS NEEDED February 14, 2018 11:19am April 10, 2019 4:21pm metroNIDAZOLE 500 mg oral tablet (3 sources) Nitroimidazole Antimicrobial Start: 09-16-2017 End: 10-13-2017 take 500 mg by mouth every eight hours Metronidazole Discontinued 500 MG PO Q8H September 16, 2017 12:00am October 13, 2017 3:41pm Multivitamin With Folic Acid (3 sources) Start: 09-14-2017 End: 02-21-2020 take 1 tablet by mouth once daily Multivitamin With Folic Acid Discontinued 1 TABLET PO DAILY September 14, 2017 6:10pm February 21, 2020 9:03am Start: 09-14-2017 End: 02-21-2020 take 1 tablet by mouth once daily Multivitamin With Folic Acid Discontinued 1 TABLET PO DAILY September 14, 2017 12:00am February 21, 2020 9:03am Start: 09-14-2017 End: 02-21-2020 take 1 tablet by mouth once daily Multivitamin With Folic Acid Discontinued 1 TABLET PO DAILY September 13, 2017 11:00pm February 21, 2020 8:03am tamsulosin hydrochloride 0.4 mg oral capsule (3 sources) alpha-Adrenergic Brandi Start: 09-14-2017 End: 02-25-2019 take 0.4 mg by mouth once daily Tamsulosin Discontinued 0.4 MG PO DAILY September 14, 2017 12:00am February 25, 2019 10:05am Problems Active Problems Problem Classification Problem Date Documented Da te Episodic/Chronic Disorders of lipid metabolism (5 sources) Dyslipidemia; Translations: [Hyperlipidemia, unspecified] 02-14-2018 Chronic Diverticulosis and diverticulitis (3 sources) Diverticulitis; Translations: [Diverticulitis of intestine, part unspecified, without perforation or abscess without bleeding] 02-14-2018 Chronic Hyperplasia of prostate (3 sources) Benign prostatic hyperplasia; Translations: [Benign prostatic hyperplasia without lower urinary tract symptoms] 02-14-2018 Chronic Nutritional deficiencies (3 sources) Vitamin D deficiency; Translations: [Vitamin D deficiency, unspecified] 03-01-2021 Chronic Osteoarthritis (1 source) Unilateral primary osteoarthritis, right knee; Translations: [Unilateral primary osteoarthritis, right knee] Onset: 03-18-2024 Chronic Other connective tissue disease (2 sources) Pain in calf; Translations: [Pain in unspecified lower leg] 05-02-2022 Episodic Other connective tissue disease (2 sources) Pain in unspecified lower leg; Translations: [Pain in limb] 05-02-2022 Episodic Other non-traumatic joint disorders (1 source) Pain in right knee; Translations: [Pain in right knee] Onset: 03-18-2024 Episodic Spondylosis; intervertebral disc disorders; other back problems (7 sources) Neck pain; Translations: [Cervicalgia] 05-02-2022 Episodic Past or Other Problems Problem Classification Problem Date Documented Da te Episodic/Chronic Other screening for suspected conditions (not mental disorders or infectious disease) (1 source) Encounter for screening for malignant neoplasm of prostate; Translations: [Encounter for screening for malignant neoplasm of prostate] Onset: 08-21-2023 Episodic Other skin disorders (1 source) Follicular cyst of the skin and subcutaneous tissue, unspecified; Translations: [Follicular cyst of the skin and subcutaneous tissue, unspecified] Onset: 05-01-2023 Episodic Skin and subcutaneous tissue infections (1 source) Local infection of the skin and subcutaneous tissue, unspecified; Translations: [Local infection of the skin and subcutaneous tissue, unspecified] Onset: 05-01-2023 Episodic Results Test Name Value Interpretation Reference Range Facility Knee 4 or More Viewson 03-18 Knee 4 or More Views [facility] [address] [place] [address] Knee 4 or More Views MR#: [id number] Acct: [id number] Name: WING ORTIZ Rep #: [id number] : 1955 M 68 From: Yared Clinton MD PCP: Dr. Anila Jordan MD Status: DEP AMB Study: Knee 4 or More Views Date of Exam: 03/18/24 Exam# [id number] Ordering Dr: Mac Florez DO [id number] STUDY: X-RAY - RIGHT KNEE REASON FOR EXAM: Male, 68 years old. Pain. TECHNIQUE: 4 views of the right knee. COMPARISON: Right knee radiographs dated 02/25/2019. FINDINGS: Normal visualized distal femur. Normal visualized proximal tibia and fibula. Normal proximal tibiofibular articulation. There is no demonstrated fracture. There is new mild degenerative arthrosis of the medial femorotibial compartment with new mild joint space narrowing. Normal lateral femorotibial compartment. There is stable mild degenerative arthrosis of the patellofemoral articulation. There is a tiny joint effusion. The soft tissue structures are unremarkable. RAD/Knee 4 or More Views IMPRESSION: New mild degenerative arthrosis of the medial femorotibial compartment. Stable mild degenerative arthrosis of the patellofemoral articulation. Tiny joint effusion. No demonstrated fracture. Electronically Signed: Yared Clinton MD at 14:01 EST Reading Location ID and State: [facility] / [place] , Service support , CC: Dr. Mac Florez DO; Dr. Anila Jordan MD Ladler: Signed Normal [facility] Orthopedic Visit Reporton Orthopedic Visit Report [facility] [address] [place] [address] [address] [place] [address] OFFICE VISIT Date of Service: 03/18/24 MR#: [id number] Acct: [id number] Name: WING ORTIZ Rep #: [id number] : 1955 Provider: Dr. Mac arriaga DO Age/Sex: 68/M Location[place] [facility] Status: Signed Intake Vital Signs 05/01/23 09:05 03/18/24 14:32 Height 6 ft 1 in 6 ft 1 in Weight: 203 lb 6 oz BMI 26.8 Intake Visit Reasons: RIGHT KNEE Allergies No Known Allergies Allergy (Verified 02/09/24 13:07) Medications ???Medication ???Instructions ???Recorded ???Confirmed ???Type psyllium husk (with sugar) 3.4 575 g PO DAILY DIVERTICULITIS 11/22/17 03/18/24 History gram/12 gram oral powder glucosamine sulf dipot 1 ea PO DAILY 04/17/19 03/18/24 History chlr,msm,chond 550 mg-C 30 mg-maria e 1 mg capsule multivit,calc,mins-f olic 240 tab PO 02/21/20 03/18/24 History mcg-vit K1 30 mcg-lycopene 300 mcg tablet (One-A-Day Men's Complete) vit d3 PO 1XD 05/04/22 03/18/24 History Have you fallen in the past year?: No PFSH Medical History Infected cyst of skin High triglycerides BPH (benign prostatic hyperplasia) Diverticulitis Dyslipidemia Surgical History History of arthroscopic knee surgery History of transurethral resection of prostate History of colectomy ( 11/2017) History of tooth extraction History of colonoscopy Family History Brother Diabetes Social History Smoking Status: Former smoker quit date: 03/13/85 alcohol intake: current alcohol intake frequency: 0-2 drinks per day Alcohol type: beer substance use type: does not use what type of physical activity do you participate in: walking frequency: daily HPI RIGHT KNEE Details: This documentation accurately reflects the service provided and the decisions made by me, Dr. Mac Florez, DO 03/18/24 1443. Part of today???s visit was documented by Araceli LYNCH, acting as scribe. WING ORTIZ is a 68 year old M here today for right knee pain. Patient did have an arthroscopy on 04/23/19. He states that his pain is constant and his pain is over his anterior knee around his kneecap. He has been having the right knee pain for about a year now. He denies any known injury to the knee. He states that over time his pain has gotten worse. He denies taking anything for the pain. He denies mechanical symptoms. Ortho Exam General General: Yes no acute distress Neurologic: Yes alert and Yes oriented x3 Psychologic: Yes reasonable and appropriate Right Knee Skin/Wound: No ecchymosis and No swelling Knee ROM: Yes ROM-Extension -20 to 0 and Yes ROM-Flexion 0-140 (120) Examination: No Med jt line tenderness, No Lat jt line tenderness, No Pain with extention, No Pravin's Test and No TTP Pes Anserine Stability: NML: Anterior Drawer, NML: Posterior Drawer, NML: Valgus 0, NML: Valgus 30, NML: Varus 0 and NML: Varus 30 Patella Translation: 1 Patella Grind: No KNEE: good pedal pulse no effusion Left Knee Patella Translation: 1 Office Procedures Ortho Injections Injections Yes Knee Right Is this a patient provided medication?: No Details: Obtained consent for injection. Under sterile conditions, injected the patients right knee with 1.5cc bupivacaine 1.5cc lidocaine 1cc depo medrol. The patient tolerated the injection well without any noted complication. Patient should call our office if redness develops, pain worsens or if they have any concerns. Office Meds Depo-Medrol 40 mg/mL suspension for injection Performing Provider: Mac Florez DO Performing Location: [facility] Administered by: Mac Florez DO on 03/18/24 15:06 Dose Route Admin Location Dispensed Lot Number Expiration Date [facility] Man ufacturer 40 mg intra-articular right knee 1 mL [id number] 10/11/25 8470-7380-32 [facility] Supplemental Info 03/18/2024 x-ray right knee: There is some osteophytic rimming of the medial tibial plateau mild degenerative spurring in the patellofemoral joint mild spurring of the tibial spines 04/23/2019 operative report: Postoperative diagnosis: Right knee complex tear posterior horn medial meniscus grade 3 cartilage wear medial compartment trochlea small area and lateral femoral condyle grade 4 patella Procedure: Right knee arthroscopic partial medial meniscectomy chondroplasty medial patellofemoral compartment 02/25/2019 x-ray right knee: Mild patellofemoral spurring Coding Level of Care Code Off vis,est,level 3 Diagnoses Primary osteoarthritis of right knee M17.11 Osteoarthritis type: primary CPT Codes field [email or web address] (more content not included)... Normal [facility] Urgent Care Visit Reporton 04-10-2023 Urgent Care Visit Report [facility] [address], [address] [place] [address] OFFICE VISIT Date of Service: 02/09/24 MR#: [id number] Acct: [id number] Name: WING ORTIZ Rep #: [id number] : 1955 Provider: ADAMS Menezes Age/Sex: 68/M Location: [facility] Status: Signed Intake Vital Signs 05/01/23 09:05 02/09/24 13:07 Height 6 ft 1 in BP 136/68 H Blood Pressure Location Rt brachial Position Sitting Respiration 15 Pulse 79 Pulse Source NIBP Temp 99.7 F H Temp Source Oral Pulse Oximetry (%) 99 Oxygen Delivery Method room air Intake Visit Reasons: CONCERN FOR TICK BITE 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 left bicep with large area of redness surrounding wound. left calf with small amount of redness surrounding. no active drainage to either area, pt believes he removed ticks in entirety. denies fever, fatigue PFSH Medical History (Updated 02/09/24 @ 13:22 by ADAMS Vazquez) Infected cyst of skin High triglycerides BPH (benign prostatic hyperplasia) Diverticulitis Dyslipidemia Surgical History History of arthroscopic knee surgery History of colectomy ( 11/2017) History of colonoscopy History of tooth extraction History of transurethral resection of prostate Family History Brother Diabetes Social History Smoking Status: Former smoker quit date: 03/13/85 alcohol intake: current alcohol intake frequency: 0-2 drinks per day Alcohol type: beer substance use type: does not use what type of physical activity do you participate in: walking frequency: daily HPI HPI Chief Complaint: tick bite x2 Details: WING ORTIZ, is a 68 M who presents to the office today for complaint of 2 tick bites that he has pulled out of his left arm and left leg. Patient states that he got the text on Monday and then pull out the techs yesterday. He denies fever, chills or sweats. No nausea, vomiting or diarrhea. No fatigue or bodyaches. No other associated symptoms or alleviating/aggravat ing factors. ROS Const Constitutional: No other (6 system ROS completed with pertinent findings in the HPI otherwise normal.) Exam Const General: cooperative and healthy appearing Resp Effort Inspection: normal respiratory effort Cardio Rate: regular rate Skin Other: 2 small circular lesions left bicep and left calf both measuring approximately 1 cm in diameter with no extending erythema, warmth or drainage. Neuro General: patient alert Psych Appearance: grossly normal Mental Status: mental status grossly normal Coding Level of Care Code Off vis,new,level 3 Diagnoses Tick bite of left upper arm S40.862A; W57.XXXA Tick bite of left lower leg S80.862A; W57.XXXA Assessment and Plan Assessment and Plan (1) Tick bite of left upper arm: Status: Acute (2) Tick bite of left lower leg: Status: Acute Medications: New doxycycline hyclate 200 mg (2 x 100 mg) PO QDAY 2 caps 0RF Plan Doxycycline given prophylactically. Patient advised of ongoing wound management. Patient advised of other symptomatic management techniques as well as potential red flags and when appropriate to report to the ED. Patient verbalized understanding and agreement with all the above. Clinical Quality Measures Falls Risk Screening/Assistive Devices Have you fallen in the past year?: No 02/09/24 1325 Date Hayden Garcia Signature: Date (if applicable) CC: Normal [facility] PSA,Total - Annual Screenon 08-15-2023 PSA,TOT SCREEN 1.02 ng/mL Normal 0.00-4.00 [facility] Comment on above: Result Comment: This test was performed using the TPSA assay method for the [employer] chemistry system. Values obtained with different assay methods cannot be used interchangably. When changing PSA assays in the course of monitoring a patient, additional sequential testing should be carried out to confirm baseline values. Performed By: #### L [id number] #### [facility] [address] [place], [address] Surgery Visit Reporton 05-28 Surgery Visit Report [facility] [address] [place] [address] OFFICE VISIT Date of Service: 05/29/23 MR#: [id number] Acct: [id number] Name: WING ORTIZ Rep #: [id number] : 1955 Provider: MARCELO adler Age/Sex: 67/M Location: [facility] Status: Signed Intake Vital Signs 05/01/23 09:05 Height 6 ft 1 in Weight: 196 lb BMI 25.8 Respiration 16 Intake Visit Reasons: INCISION CHECK Chief Complaint: incision check Is patient in pain?: No Allergies No Known Allergies Allergy (Verified 05/29/23 08:58) Medications psyllium husk (with sugar) 3.4 gram/12 gram oral powder 575 g PO DAILY DIVERTICULITIS 11/22/17 [History Confirmed 05/29/23] glucosamine sulf dipot chlr,msm,chond 550 mg-C 30 mg-maria e 1 mg capsule 1 ea PO DAILY 04/17/19 [History Confirmed 05/29/23] multivit,calc,mins-f olic 240 mcg-vit K1 30 mcg-lycopene 300 mcg tablet (One-A-Day Men's Complete) tab PO 02/21/20 [History Confirmed 05/29/23] vit d3 PO 1XD 05/04/22 [History Confirmed 05/29/23] Subjective Details: Patient is a 67 y/o M who returns to have the remaining of his sutures removed. He denies any concern or issues since his last visit. He has been icing the area all weekend and keeping the incision covered. Objective Details: Back- incision c/d/i. Remaining sutures were removed and dermabond was applied. Coding Level of Care Code Global Post Op Diagnoses Infected cyst of skin L72.9; L08.9 [facility] Medical History (Updated 05/29/23 @ 08:59 by Mendy Avilez) BPH (benign prostatic hyperplasia) Diverticulitis Dyslipidemia High triglycerides Infected cyst of skin Surgical History History of arthroscopic knee surgery History of colectomy ( 11/2017) History of colonoscopy History of tooth extraction History of transurethral resection of prostate Family History Brother Diabetes Social History Smoking Status: Former smoker quit date: 03/13/85 alcohol intake: current alcohol intake frequency: 0-2 drinks per day Alcohol type: beer substance use type: does not use what type of physical activity do you participate in: walking frequency: daily Assessment and Plan (No Qualifiers) Assessment and Plan (1) Infected cyst of skin: Status: Acute Plan: May increase lifting restriction to 40-50 pounds for the remaining of this week then no restrictions Follow-up as needed 05/29/23 1525 Date Loreto Garcia Signature: Date (if applicable) CC: Dr. 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 Accompanied by: Is patient in pain?: No Allergies No Known Allergies Allergy (Verified 05/24/23 10:06) Medications psyllium husk (with sugar) 3.4 gram/12 gram oral powder 575 g PO DAILY DIVERTICULITIS 11/22/17 [History Confirmed 05/24/23] glucosamine sulf dipot chlr,msm,chond 550 mg-C 30 mg-maria e 1 mg capsule 1 ea PO DAILY 04/17/19 [History Confirmed 05/24/23] multivit,calc,mins-f olic 240 mcg-vit K1 30 mcg-lycopene 300 mcg tablet (One-A-Day Men's Complete) tab PO 02/21/20 [History Confirmed 05/24/23] vit d3 PO 1XD 05/04/22 [History Confirmed 05/24/23] Subjective Details: Patient is a 67 y/o M I am following s/p excision of low mid back cyst by Dr. Villareal on 05/16/23. Patient tolerated the procedure well. No pathology was obtained. Patient notes itchiness of the incision. He denies incisional pain/discomfort. He denies any drainage from the incision. He denies any erythema. He has been limiting his activity. He has been keeping the area covered. Objective Details: Low mid back- incision c/d/i. No erythema or infection noted. Moderate amount of tension noted on the incision in the middle. Four sutures were removed. Three sutures remained as there was evidence of tension. Op-sites placed. Coding Level of Care Code Global Post Op Diagnoses Infected cyst of skin L72.9; L08.9 [facility] Medical History BPH (benign prostatic hyperplasia) Diverticulitis Dyslipidemia High triglycerides Surgical History History of arthroscopic knee surgery History of colectomy ( 11/2017) History of colonoscopy History of tooth extraction History of transurethral resection of prostate Family History Brother Diabetes Social History Smoking Status: Former smoker quit date: 03/13/85 alcohol intake: current alcohol intake frequency: 0-2 drinks per day Alcohol type: beer substance use type: does not use what type of physical activity do you participate in: walking frequency: daily Assessment and Plan (No Qualifiers) Assessment and Plan (1) Infected cyst of skin: Status: Acute Plan: Recommend icing the area at least twice a day Continue to keep incision covered May increase lifting to 35 pounds Follow-up on Monday for remaining sutures to be removed 05/24/23 1108 Date Loreto Garcia Signature: Date (if applicable) CC: Normal [facility] Surgery Visit Reporton 05-15 Surgery Visit Report [facility] [address] [place] [address]. [address] [place] [address] OFFICE VISIT Date of Service: 05/16/23 MR#: [id number] Acct: [id number] Name: WING ORTIZ Rep #: [id number] : 1955 Provider: Dr. 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 Is patient in pain?: No Allergies No Known Allergies Allergy (Verified 05/16/23 13:15) Medications psyllium husk (with sugar) 3.4 gram/12 gram oral powder 575 g PO DAILY DIVERTICULITIS 11/22/17 [History Confirmed 05/16/23] glucosamine sulf dipot chlr,msm,chond 550 mg-C 30 mg-maria e 1 mg capsule 1 ea PO DAILY 04/17/19 [History Confirmed 05/16/23] multivit,calc,mins-f olic 240 mcg-vit K1 30 mcg-lycopene 300 mcg tablet (One-A-Day Men's Complete) tab PO 02/21/20 [History Confirmed 05/16/23] vit d3 PO 1XD 05/04/22 [History Confirmed 05/16/23] PFSH Medical History BPH (benign prostatic hyperplasia) Diverticulitis Dyslipidemia High triglycerides Surgical History History of arthroscopic knee surgery History of colectomy ( 11/2017) History of colonoscopy History of tooth extraction History of transurethral resection of prostate Family History Brother Diabetes Social History Smoking Status: Former smoker quit date: 03/13/85 alcohol intake: current alcohol intake frequency: 0-2 drinks per day Alcohol type: beer substance use type: does not use what type of physical activity do you participate in: walking frequency: daily HPI HPI HPI: 67-year-old gentleman. I saw him in the office on May 01, 2023. He appeared to have a ruptured infected draining sebaceous cyst of the low mid back. We discussed definitive treatment with complete excision of this area. He returns at this time to have the office perform surgical procedure. Office Procedures Excision of skin Provider Documentation Provider Documentation: Procedure note Wide excision ruptured sebaceous cyst low mid back Timeout informed consent was obtained. Patient was taken the procedure room placed on the table the low mid back was prepped with Betadine. 1% lidocaine mixed 50-50 with 0.5% Marcaine was used as local anesthetic. 16 cc was used. A transverse elliptical 3.5 x 1.3 cm ellipse was used to completely excise the ruptured cyst. Sharp dissection carried down into the subcutaneous tissues. Hemostasis obtained with interrupted 2-0 chromic suture ligature. Superior and inferior subcutaneous flaps were raised. Subdermal tissues approximated interrupted 2-0 chromic sutures. Skin edges approximated simple sutures of 3-0 nylon. Single Steri-Strip was applied. Telfa OpSite dressings applied. He tolerated procedure well with no apparent complication blood loss was minimal. After discussion with the patient this very much consistent with a ruptured sebaceous cyst and the specimen was discarded. Office appointment follow-up in 7 days time scheduled for suture removal and wound inspection Kirk Villareal M.D., F.A.C.S. T/A/L 70294 1.1-2.0cm Procedure Time Out Time Out Informed consent given: Yes Consent signed: Yes Time out checklist: patient, procedure, site marked/identified, positioning of patient, supplies available, allergies confirmed and team agrees on procedure Time out staff in room: Yes Time out verified: Yes Time out date: 05/16/23 Time out time: 13:10 Assessment and Plan Assessment and Plan (1) Infected cyst of skin: Status: Acute Plan: Successful excision of a ruptured sebaceous cyst low mid back. This did require a multilevel suture closure. Office follow-up as scheduled in 7 days for wound inspection and potential suture removal. Due to the degree of the excision site tension on the wound noted. Copy: Dr. Anila Villareal M.D., F.A.C.S. Coding Level of Care Code Attention Shonda Diagnoses Infected cyst of skin L72.9; L08.9 CPT Codes T/A/L - Benign T/A/L: 41118 1.1-2.0cm (81128) Comment [id number] 05/16/23 1540 Date Kirk Villareal MD Cosigner Signature: Date (if applicable) CC: Dr. Anila Jordan MD Normal [facility] Surgery Visit Reporton 05-01 Surgery Visit Report [facility] [address] [place] [address]. [address] [place] [address] OFFICE VISIT Date of Service: 05/01/23 MR#: [id number] Acct: [id number] Name: WING ORTIZ Rep #: [id number] : 1955 Provider: Dr. Kirk mcadams MD Age/Sex: 67/M Location: [facility] Status: Signed Intake Vital Signs 04/05/23 08:34 05/01/23 09:05 Height 6 ft 1 in 6 ft 1 in Weight: 196 lb 6 oz 196 lb BMI 25.9 25.8 BP 130/77 H Blood Pressure Location Rt brachial Position Sitting Respiration 16 16 Pulse 68 Pulse Source Monitor Temp 98.1 F Temp Source Temporal Pulse Oximetry (%) 95 Oxygen Delivery Method room air Intake Visit Reasons: REACCURRING CYST, LOWER BACK Chief Complaint: recurerrent area x last 2 weeks Cashier Office Required: No Is patient in pain?: No Allergies No Known Allergies Allergy (Verified 05/01/23 09:05) Medications psyllium husk (with sugar) 3.4 gram/12 gram oral powder 575 g PO DAILY DIVERTICULITIS 11/22/17 [History Confirmed 05/01/23] glucosamine sulf dipot chlr,msm,chond 550 mg-C 30 mg-maria e 1 mg capsule 1 ea PO DAILY 04/17/19 [History Confirmed 05/01/23] multivit,calc,mins-f olic 240 mcg-vit K1 30 mcg-lycopene 300 mcg tablet (One-A-Day Men's Complete) tab PO 02/21/20 [History Confirmed 05/01/23] vit d3 PO 1XD 05/04/22 [History Confirmed 05/01/23] PFSH Medical History BPH (benign prostatic hyperplasia) Diverticulitis Dyslipidemia High triglycerides Surgical History History of arthroscopic knee surgery History of colectomy ( 11/2017) History of colonoscopy History of tooth extraction History of transurethral resection of prostate Family History Brother Diabetes Social History Smoking Status: Former smoker quit date: 03/13/85 alcohol intake: current alcohol intake frequency: 0-2 drinks per day Alcohol type: beer substance use type: does not use what type of physical activity do you participate in: walking frequency: daily HPI HPI HPI: 67-year-old gentleman is referred by Dr. Anila Jordan for surgical consultation regarding recurrent sebaceous cyst of the back. A written copy my surgical consult recommendations will return to him. It is of note that November 29 I assisted the patient with a laparoscopic left colectomy for recurrent diverticulitis. The patient's most recent office visit with Dr. Anila Jordan was April 05, 2023. He had an inflamed infected cyst on his lower back. He had been doing a lot of driving and felt that he had irritated. He was prescribed doxycycline. Recommendations however were for consideration of complete removal. The patient's presents with him today as she has do the dressings because of the location. She states initially there was some drainage after the use of moist warm compresses but that has slowed down. He has no significant current discomfort but there is a Band-Aid covering the area. ROS General General: No weight change, appetite, fatigue, colon cancer, breast cancer or weakness HEENT HEENT: No difficulty swallowing, eye injury, eye surgery, swollen glands or hoarseness Endo Endocrine: No thyroid disease, diabetes mellitus, thyroid cancer, Hair loss, heat intolerance or cold intolerance Skin Skin: No rash or changing moles Breast Breast: No left breast lump, right breast lump, nipple discharge, breast pain, abnormal mammogram, abnormal US or breast enlargement Musc Musculoskeletal: No back problems, arthritis, rheumatoid arthritis, gout or joint pain Cardio Cardiovascular: No murmur, pacemaker, heart disease, atrial fibrillation, high blood pressure, heart attack, heart stent, palpitations, shortness of breat with exertion or chest pain Psych Psychiatric: No depression, anxiety or hearing voices Resp Respiratory: No shortness of breath, No sleep apnea, No cough, No COPD, No asthma, No emphysema and No wheezing Gastro Gastrointestinal: No abdominal pain, No nausea or vomiting, No diarrhea, No constipation, No blood in stool, No acid reflux, No hemorrhoids, No ulcers, No gallbladder problem and No black,tarry stool s Arnel Hematologic: No blood thinners, No blood disorders, No bleeding, No anemia and No blood clots Neuro Neurologic: No system reviewed and no additional complaints, except as documented, No as per HPI, No abnormal gait, No abnormal hearing, No abnormal movements, No abnormal speech, No behavioral c hanges, No burning sensations, No confusion, No convulsions, No disequilibrium, No dizziness, No localized weakness, No frequent falls, No headache(s), No lack of coordination, No loss of vision, No memory loss, No (more content not included)... Normal [facility] MR/BMS.IMBon 04-05-2023 MR/BMS.IMB [facility] [address] [place] [address] OFFICE VISIT Date of Service: 04/05/23 MR#: [id number] Acct: [id number] Name: WING ORTIZ Rep #: [id number] : 1955 Provider: Dr. Anila lees MD Age/Sex: 67/M Location: [facility] Status: Signed Intake Vital Signs 03/01/21 08:59 04/05/23 08:34 Height 6 ft 1 in 6 ft 1 in Weight: 196 lb 6 oz BMI 25.9 BP 130/77 H Blood Pressure Location Rt brachial Position Sitting Respiration 16 Pulse 68 Pulse Source Monitor Temp 98.1 F Temp Source Temporal Pulse Oximetry (%) 95 Oxygen Delivery Method room air Intake Visit Reasons: Infection on Back Chief Complaint: recurerrent area x last 2 weeks Cashier Office Required: No Is patient in pain?: No Allergies No Known Allergies Allergy (Verified 04/05/23 08:36) Medications psyllium husk (with sugar) 3.4 gram/12 gram oral powder 575 g PO DAILY DIVERTICULITIS 11/22/17 [History Confirmed 04/05/23] glucosamine sulf dipot chlr,msm,chond 550 mg-C 30 mg-maria e 1 mg capsule 1 ea PO DAILY 04/17/19 [History Confirmed 04/05/23] multivit,calc,mins-f olic 240 mcg-vit K1 30 mcg-lycopene 300 mcg tablet (One-A-Day Men's Complete) tab PO 02/21/20 [History Confirmed 04/05/23] vit d3 PO 1XD 05/04/22 [History Confirmed 04/05/23] doxycycline hyclate 100 mg tablet 100 mg PO BID 7 days #14 tabs 04/05/23 [Rx Confirmed 04/05/23] PFSH Medical History BPH (benign prostatic hyperplasia) Diverticulitis Dyslipidemia High triglycerides Surgical History History of arthroscopic knee surgery History of colectomy ( 11/2017) History of colonoscopy History of tooth extraction History of transurethral resection of prostate Family History Brother Diabetes Social History Smoking Status: Former smoker quit date: 03/13/85 alcohol intake: current alcohol intake frequency: 0-2 drinks per day Alcohol type: beer substance use type: does not use what type of physical activity do you participate in: walking frequency: daily HPI HPI Chief Complaint: recurerrent area x last 2 weeks Details: WING ORTIZ, is a 67 M who presents to the office today for an acute care visit. 67-year-old gentleman who is generally speaking healthy and takes no routine prescription based medications to has an inflamed infected cyst on his lower back, essentially midline. States had about 40 years ago had a similar problem. They still have the notes from that and they saw a nurse practitioner at the [facility]. He was prescribed doxycycline and responded well to that. Recently he was helping his son move from [place] to [place]. A lot of driving, and probably irritated this area leading to recurrence. Spouse notes drainage. They are using triple antibiotic, warm compresses and covering it. No fever or chills. Review of systems per chart. Physical exam. Vital signs on chart. My exam today is focused. In the midline, upper lumbar area, is a inflamed infected cyst. There is a fair amount of induration. Some drainage from the cyst itself during exam. Moderately tender. No evidence of acute cellulitis. ROS Const Constitutional: No body ache, chills, excessive sweating, fatigue, fever(s), frequent falls, headache(s), snoring, weakness, weight change, sleep problems or change in appetite Eyes Eyes: No blurry vision, change in vision, eye pain or Light sensitivity ENT ENT: No abnormal hearing, ear or mastoid pain, tinnitus, nasal congestion, headache(s), neck pain or sore throat Resp Respiratory: No cough, shortness of breath, snoring or wheezing Cardio Cardiology: No chest pain at rest, chest pain with exertion, excessive sweating, shortness of breath, dyspnea on exertion, lightheadedness, orthopnea or palpitations Gastro GI: No abdominal pain, change in bowel habits, constipation, cramping, diarrhea, Vomiting blood/hematemesis, vomiting or other Genitourinary Male: No burning urination, painful urination, urinary incontinence or blood in urine Musc Musculoskeletal: No abnormal gait, joint pain, back pain, limited range of motion, neck pain, numbness or tingling Skin Skin: Positive for other (area over middle of back ); No dry skin, redness, lesions, itchy eyes, rash or wounds Breast Breast: No change in breast shape, breast lump, breast pain, breast skin changes, breast swelling, nipple discharge or other Neuro Neurology: No abnormal gait, abnormal hearing, abnormal speech, dizziness, weakness, frequent falls, headache(s), memory loss, numbness or tingling Psych Psychiatric: No anxiety, No change in appetite, No depression, No memory loss and No Thoughts of nyla (more content not included)... Normal [facility] No Panel InformationOrdered By: Dr. Greene on 08-09-2022 Prostate Specific Antigen Screen 1.00 ng/mL 0.00-4.00 [facility] Comment on above: This test was perfor med using the TPSA assay method for [employer] chemistry system. Values obtained with differentassay methods cannot be used interchangably.When changing PSA assays in the course of monitoring apatient, additional sequential testing should be carriedout to confirm baseline values. Absolute lymphocyte countOrd ered By: Dr. Jordan on 05-02-2022 Lymphocytes Auto (Unsp spec) [#/Vol] 2.66 10*3/uL 0.83-4.51 [facility] Basophil percentageOrdered B y: Dr. Jordan on 05-02-2022 Basophils/100 WBC (Bld) 0.9 % 0-1 [facility] Bilirubin [Mass/Vol] 0.50 mg/dL 0.20-1.00 [facility] Comment on above: For patients on eltr ombopag therapy, use of Dimension Ray TBIL is not recommended. Chloride [Moles/Vol] 108 mmol/L 98-107 [facility] Cholesterol [Mass/Vol] 196 mg/dL <200 [facility] Comment on above: <200 mg/dL Desirable 200-240 mg/dL Borderline >240 mg/dL High Risk Eosinophils/100 WBC (Bld) 1.1 % 0-5 [facility] Glucose [Mass/Vol] 106 mg/dL 74-106 [facility] Comment on above: Fasting Glucose resu lt from 100 to 125 mg/dL suggests IMPAIRED HOMEOSTASIS per A.D.A. criteria. Neutrophils (Bld) [#/Vol] 5.3 10*3/uL 2.0-7.7 [facility] Neutrophils/100 WBC (Bld) 58.8 % 47-70 [facility] Potassium [Moles/Vol] 3.8 mmol/L 3.5-5.1 [facility] Protein [Mass/Vol] 7.5 g/dL 6.4-8.2 [facility] Sodium [Moles/Vol] 141 mmol/L 136-145 [facility] Triglyceride [Mass/Vol] 130 mg/dL <199 [facility] Comment on above: The drugs N-Acetylcy steine and Metamizole may falsely depress this assay.Serum Triglycerides Reference Interval Normal <150 mg/dL Borderline high 150 - 199 mg/dL High 200 - 499 mg/dL Very High > or = 500 mg/dL WBC (Bld) [#/Vol] 9.0 10*3/uL 4.4-11.0 [facility] Blood erythrocytes count (nu mber/volume)Ordered By: Dr. Jordan on 05-02-2022 RBC (Bld) [#/Vol] 4.78 10*6/uL 4.6-6.2 [facility] Blood hemoglobin measurement (mass/volume)Ordered By: Dr. Jordan on 05-02-2022 Hemoglobin (Bld) [Mass/Vol] 14.8 g/dL 13.0-16.5 [facility] Blood lymphocytes/100 leukoc ytesOrdered By: Dr. Jordan on 05-02-2022 Lymphocytes/100 WBC (Bld) 29.5 % 19-41 [facility] Blood monocytes/100 leukocyt esOrdered By: Dr. Jordan on 05-02-2022 Monocytes/100 WBC (Bld) 9.4 % 0-10 [facility] Blood platelet mean volumeOr dered By: Dr. Jordan on 05-02-2022 Platelet mean volume (Bld) [Entitic vol] 10.2 fL 6.2-12.0 [facility] Determination of erythrocyte mean corpuscular volume (MCV)Ordered By: Dr. Jordan on 05-02-2022 MCV (RBC) [Entitic vol] 91.8 fL 80-94 [facility] Hematocrit Auto (Bld) [Volum e fraction]Ordered By: Dr. Jordan on 05-02-2022 Hematocrit (Bld) [Volume fraction] 43.9 % 40-54 [facility] Laboratory - Chemistry and C hemistry - challengeOrdered By: Dr. Jordan on 05-02-2022 ALP [Catalytic activity/Vol] 54 U/L 45-117 [facility] ALT [Catalytic activity/Vol] 49 U/L 16-61 [facility] CO2 [Moles/Vol] 28.0 mmol/L 21.0-32.0 [facility] Globulin (S) [Mass/Vol] 3.7 g/dL 2.2-4.2 [facility] Urea nitrogen/Creatinine [Mass ratio] 15.5 mg/mg 10-20 [facility] - Hematology and Cell countsOrdered By: Dr. Jordan on 05-02-2022 Erythrocyte distribution width (RBC) [Entitic vol] 41.2 fL 35.1-43.9 [facility] Erythrocyte distribution width (RBC) [Ratio] 12.1 % 11.6-14.6 [facility] Immature granulocytes/100 WBC (Bld) 0.300 % 0.0-0.9 [facility] Comment on above: IG% - Immature Granu locytes (promyelocytes, myelocytes and metamyelocytes) > 1% indicates that a LEFT SHIFT is Present. MCH (RBC) [Entitic mass] 31.0 pg 27.0-32.0 [facility] Nucleated RBC/100 WBC (Bld) [Ratio] 0 % 0-5 [facility] MCHC Auto (RBC) [Mass/Vol]Or dered By: Dr. Jordan on 05-02-2022 MCHC (RBC) [Mass/Vol] 33.7 g/dL 32-36 [facility] No Panel InformationOrdered By: Dr. Jordan on 05-02-2022 D-Dimer Quantitative (PE/DVT) 0.33 FEU/ug/m 0.27-0.49 [facility] Comment on above: NORMAL D-Dimer level (<0.50) indicates no DVT or PE. Estimated GFR (MDRD) Amer 93 mL/min >60 [facility] Comment on above: GFR Calc Estimated GFR (MDRD) Non-Af Amer 76 mL/min >60 [facility] Comment on above: Non- GFR Calc Thyroid Stimulating Hormone (TSH) 1.48 uIU/mL 0.358-3.74 [facility] Vitamin D 25-Hydroxy 24.7 ng/mL [facility] Comment on above: Vitamin D 25(OH) Sta tus Range Deficiency <20 ng/mL (50nmol/L) Insufficiency 20 - 30 ng/mL (50 - 75 nmol/L) Sufficiency 30 - 100 ng/mL (75 - 250 nmol/L) Toxicity >100 ng/mL (>250 nmol/L) Platelets bldOrdered By: Dr. Jordan on 05-02-2022 Platelets (Bld) [#/Vol] 227 10*3/uL 150-450 [facility] Serum or plasma albumin kylie urement (mass/volume)Ordered By: Dr. Jordan on 05-02-2022 Albumin [Mass/Vol] 3.8 g/dL 3.2-5.0 [facility] Serum or plasma albumin/glob ulin mass ratioOrdered By: Dr. Jordan on 05-02-2022 Albumin/Globulin [Mass ratio] 1.0 {ratio} 0.9-2.4 [facility] Serum or plasma calcium kylie urement (mass/volume)Ordered By: Dr. Jordan on 05-02-2022 Calcium [Mass/Vol] 9.1 mg/dL 8.5-10.1 [facility] Serum or plasma cholesterol in HDL measurement (mass/volume)Ordered By: Dr. Jordan on 05-02-2022 Cholesterol in HDL [Mass/Vol] 68 mg/dL >40 [facility] Comment on above: The drugs N-Acetylcy steine and Metamizole may falsely depress this assay. Reference Range HDL <40 mg/dL Low HDL Cholesterol HDL >or= 60 mg/dL High HDL Cholesterol Serum or plasma cholesterol in VLDL measurement (mass/volume)Ordered By: Dr. Jordan on 05-02-2022 Cholesterol in VLDL [Mass/Vol] 26 mg/dL 5-40 [facility] Serum or plasma creatinine m easurement (mass/volume)Ordered By: Dr. Jordan on 05-02-2022 Creatinine [Mass/Vol] 1.03 mg/dL 0.70-1.30 [facility] Comment on above: The validity of the calculated GFR & GFRAA in patients over 70 years has not been determined. Clinical correlation is essential. Serum or plasma low density lipoprotein (LDL) cholesterol measurement (mass/volume)Ordered By: Dr. Jordan on 05-02-2022 Cholesterol in LDL [Mass/Vol] 102 mg/dL 0-130 [facility] Serum or plasma urea nitroge n measurement (mass/volume)Ordered By: Dr. Jordan on 05-02-2022 Urea nitrogen [Mass/Vol] 16 mg/dL 7-18 [facility] Thin prep Papanicolaou smear with manual screeningOrdered By: Dr. Jordan on 05-02-2022 Thin prep Papanicolaou smear with manual screening 27 U/L 15-37 [facility] Thin prep Papanicolaou smear with manual screening 5 5-15 [facility] No Panel Informationon 08-02 Prostate Specific Antigen Screen 0.88 ng/mL 0.00-4.00 [facility] Work Phone: Comment on above: This test was perfor med using the TPSA assay method [facility] [place] system. Values obtained with differentassay methods cannot be used interchangably.When changing PSA assays in the course of monitoring apatient, additional sequential testing should be carriedout to confirm baseline values. Vital Signs Date Time Vital Sign Value Performing Clinician Faci lity 05-02-2022 14:33-0500 Body temperature 97.4 [degF] Dr. Anila Jordan Work Phone: [facility] 05-02-2022 14:33-0500 Body weight 90.[address] Anila Jordan Work Phone: [facility] 05-02-2022 14:33-0500 Diastolic blood pressure 75 mm[Hg] Dr. Anila Jordan Work Phone: [facility] 05-02-2022 14:33-0500 Heart rate 78 /min Dr. Anila Jordan Work Phone: [facility] 05-02-2022 14:33-0500 Respiratory rate 16 /min Dr. Anila Jordan Work Phone: [facility] 05-02-2022 14:33-0500 SaO2% (BldA) [Mass fraction] 95 % Dr. Anila Jordan Work Phone: [facility] 05-02-2022 14:33-0500 Systolic blood pressure 113 mm[Hg] Dr. Anila Jordan Work Phone: [facility] Encounters Encounter Date Encounter Type Care Provider Facility Start: 03-18-2024 End: 03-18-2024 ambulatory Anila Jordan Facility:[facility] Start: 02-09-2024 End: 02-09-2024 ambulatory Anila Jordan Facility:[facility] Start: 08-15-2023 End: 08-15-2023 ambulatory Anilasaul Jordan Facility:[facility] Start: 05-29-2023 End: 05-29-2023 ambulatory Anila Jordan Facility:[facility] Start: 05-24-2023 End: 05-24-2023 ambulatory Loreto LAMAS Facility:[facility] Start: 05-16-2023 End: 05-16-2023 ambulatory Kirk Deyanira Hameedbumargareth Facility:[facility] Start: 05-01-2023 End: 05-01-2023 ambulatory Kirk Mcmillan Cebumargareth Facility:[facility] Start: 04-05-2023 End: 04-05-2023 ambulatory Anila Jordan Facility:[facility] Start: 08-09-2022 End: 08-09-[address] Anila Jordan Work Phone: [facility] Work Phone: Start: 08-09-2022 End: 08-09-[address] Anila Jordan Work Phone: [facility] Start: 05-02-2022 End: 05-02-[address] Anila Jordan Work Phone: [facility] Work Phone: Start: 05-02-2022 End: 05-02-[address] Anila Jordan Work Phone: [facility] Start: 08-02-2021 End: 08-02-2021 Patient encounter procedure [facility] Procedures Date Procedure Procedure Detail Performing Clinician Start: 05-02-2022 X-ray of lumbar spine, two or three views Dr. Anila Jordan Work Phone: History of transuret hral prostatectomy History of transurethral resection of prostate Immunizations Immunization Date Immunization Notes Care Provider Fa cili 01-25-2021 Covid (Pfizer) [facility] 06-09-2020 Covid (Pfizer) [facility] 05-19-2020 Covid (Pfizer) [facility] Payers Date Payer Category Payer Self-pay [id number] [facility] 2023 Medicare [id number] [facility] 2023 Unknown [id number] Private Health Insurance [id number] Unknown [facility] *DO NOT USE* [id number] Unknown [id number] Unknown [id number] Unknown [id number] Unknown [id number] Unknown [id number] Unknown [id number] Unknown [id number] Unknown [id number] Unknown [id number] Social History Date Type Detail Facility Start: 03-01-2021 End: 05-02-2022 Tobacco smoking status WYIS Unknown if ever smoked [facility] Start: 04-17-2019 Non-smoker [facility] Start: 1955 Sex Assigned At Male [facility] Medical Equipment Procedure Code Equipment Code Equipment Original Text Equipment Identifier Dates Laparoscopic-assisted sigmoidectomy CLIP,HEMSTEVEN CHSETER FDA Start: 11-29-2017 Laparoscopic-assisted sigmoidectomy CLIPKAYLA LG FDA Start: 11-29-2017 Laparoscopic-assisted sigmoidectomy CLIP,HEMOLORONAK MED HENRIK FDA Start: 11-29-2017 Laparoscopic-assisted sigmoidectomy RELOAD,45 FLEX GREEN FDA Start: 11-29-2017 Laparoscopic-assisted sigmoidectomy RELOAD,45 FLEX GREEN FDA Start: 11-29-2017 Laparoscopic-assisted sigmoidectomy STAPLER,INTRA CDH33 ETHICON FDA Start: 11-29-2017 Laparoscopic-assisted sigmoidectomy CLIP,HEMSTEVEN CHESTER FDA Start: 11-29-2017 Laparoscopic-assisted sigmoidectomy CLIP,HEMSTEVEN CHESTER FDA Start: 11-29-2017 Laparoscopic-assisted sigmoidectomy CLIP,HEMOLORONAK MED HENRIK FDA Start: 11-29-2017 Laparoscopic-assisted sigmoidectomy RELOAD,45 FLEX GREEN FDA Start: 11-29-2017 Laparoscopic-assisted sigmoidectomy RELOAD,45 FLEX GREEN FDA Start: 11-29-2017 Laparoscopic-assisted sigmoidectomy STAPLER,INTRA CDH33 ETHICON FDA Start: 11-29-2017 Laparoscopic-assisted sigmoidectomy CLIP,KAYLA CHESTER FDA Start: 11-29-2017 Laparoscopic-assisted sigmoidectomy CLIP,KAYLA CHESTER FDA Start: 11-29-2017 Laparoscopic-assisted sigmoidectomy CLIP,KAYLA CHESTER FDA Start: 11-29-2017 Laparoscopic-assisted sigmoidectomy RELOAD,45 FLEX GREEN FDA Start: 11-29-2017 Laparoscopic-assisted sigmoidectomy RELOAD,45 FLEX GREEN FDA Start: 11-29-2017 Laparoscopic-assisted sigmoidectomy 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,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 CDH33 ETHICON FDA Start: 11-29-2017 Evaluation note Note Date & Type Note Facility Evaluation note No assessment information availa ble [facility] Work Phone: Evaluation note Note Date & Type Note Facility Evaluation note Diagnosis Onset Date Calf pain acute Lumbar radiculopathy acute [facility] Work Phone: Advance Directives No Advanced Directives Records Found Advance Directive Response Recorded Date/ Time Living Will No April 17 10:17am Power of Automotive Sales Executive No April 17, 2019 10:17am Advance Directive Response Recorded Date/ Time Living Will No April 17 9:17am Power of Automotive Sales Executive No April 17, 2019 9:17am Chief Complaint and Reason for Visit Chief Complaint Lt Hip pain EORDER Reason for Visit Calf pain Lumbar radiculopathy Chief Complaint Lt Hip pain EORDER PSA Reason for Visit Calf pain Lumbar radiculopathy Summary Purpose Family History No Family History Records Found Additional Source Comments Goals (unrecognized section and content) Goals may be documented in a n alternate sectionGoals may be documented in an alternate sectionGoals may be documented in an alternate section Care Teams (unrecognized sec tion and content) Team Status: Active Member Role Status Dates Dr. Henry Salinas MD Family Provider Active Dr. Anila Jordan MD Primary Care Provider Active Team Status: Inactive Member Role Status Dates Dr. Anila Jordan MD [facility] Active Team Status: Inactive Member Role Status Dates Dr. Anila Jordan MD Primary Care Pro vider, Attending Provider, Referring Provider Active Team Status: Inactive Member Role Status Dates Dr. Anila Jordan MD Primary Care Provider Active Dr. Binu Greene MD Attending Provider, Referr ing Provider Active (unrecognized sect ion and content) No Status Records Found INFORMATION SOURCE (unrecogn ized section and content) DATE CREATED AUTHOR 03/22/2024 [facility] FOR RECORDS PERTAINING TO PATIENTS WHO ARE OR HAVE BEEN ENROLLED IN A CHEMICAL DEPENDENCY/SUBSTANCEABUSE PROGRAM, SOME INFORMATION MAY BE OMITTED. This clinical summary was aggregated from multiple sources. Caution should be exercised in using it in the provision of clinical care. This summary normalizes information from multiple sources, and as a consequence, information in this document may materially change the coding, format and clinical context of patient data. In addition, data may be omitted in some cases. CLINICAL DECISIONS SHOULD BE BASED ON THE PRIMARY CLINICAL RECORDS. [facility] have it! [facility]. provides no warranty or guarantee of the accuracy or completeness of information in this document.
== END | disposition home or self-care (01) ==
LOC: LAB 12:15
PROVIDERS: PCP Internal Medicine; Referring Provider Urology; Visit Provider Urology
DX: Z12.5 Encounter for screening for malignant neoplasm of prostate (principal)
CPT/HCPCS: 36415; 84153; G0103

== ENCOUNTER 2024-10-17 19:40 | Emergency (ER) | payer MEDICARE, OTHER, SELFPAY ==
[2024-10-17 19:40] VITALS: BP 131/82; PULSE 66; RESP 18; TEMP 36.8; O2SAT 99; BMI 26.5
--- NOTE | 2024-10-17 19:47 | RAD_ITS ---
PROCEDURE: ELBOW MIN 3 VIEWS 10/17/2024 REASON FOR EXAM: FALL TECHNIQUE: ELBOW MIN 3 VIEWS Laterality: COMPARISON: None. FINDINGS: No evidence of acute fracture or dislocation. Degenerative changes of the elbow. No elbow joint effusion. RAD/Elbow min 3 Views IMPRESSION: No acute osseous abnormalities. Reading Location: [id number]
--- OUTSIDE RECORDS SUMMARY | 2024-10-17 20:37 | XMS RPT_ITS | CCD ---
Author Organization [facility] Care Team Providers Care District Agent Name Role Phone Dr. Anila Jordan Primary Care Provider Dr. Anila Jordan Attending Provider [phone] Nikki BOSS, Dr. [facility] Primary Care Provider Ramona BOSS, Dr. Binu Nixon Attending Provider Ramona BOSS, Dr. Binu Nixon Referring Provider [phone] Anila Jordan Primary Care Unavailable Anila Jordan Referring Unavailable Mac Florez Attending Unavailable Anila Jordan Primary Care Unavailable Dominguez Cruz Attending Unavailable Binu Greene Referring Unavailable Anila Jordan Primary Care Unavailable Binu Greene Attending Unavailable Anila Jordan Primary Care Unavailable Anila Jordan Referring Unavailable Hayden Phillips Attending Unavailable Medications Current Medications Medication Drug Class(es) Dates Sig (Normalized) Sig (Original) Glucos Sul 2hus-Pci-Gfbvv-C-Mn (3 sources) Start: 04-17-2019 Glucos Sul 8bvs-Jib-Akajr-C-Mn Active 1 EACH PO DAILY April 17, 2019 10:16am Start: 04-17-2019 Glucos Sul 2kc x-Yce-Gqspa-C-Mn Active 1 EACH PO DAILY April 17, 2019 1:00am Start: 04-17-2019 Glucos Sul 2kc b-Tnb-Bvxuh-C-Mn Active 1 EACH PO DAILY April 17, 2019 12:00am Glucos Sul 9qgq-Qii-Cxgnb-C-Mn 1 EACH capsule (1 source) Start: 04-17-2019 take 1 capsule by mouth once daily Glucos Sul 8wmd-Vzg-Vgzka-C-Mn 1 EACH capsule Active 1 NMA PO DAILY April 17, 2019 1:00am Multivit,Calc,Gdk-Qp-I3-Ly copper tapper (One-A-Day Men's Complete) 240 mcg-30 mcg- 300 mcg tablet (4 sources) Start: 02-21-2020 take 1 tablet by mouth once Multivit,Calc,Qsy-Fc-N2-Ly copper tapper (One-A-Day Men's Complete) 240 mcg-30 mcg- 300 mcg tablet Active TABLET PO February 21, 2020 9:03am Start: 02-21-2020 take 1 tablet by dia th once Multivit,Calc,Cjh-Ju-G9-Lycop (One-A-Day Men's Complete) 240 mcg-30 mcg- 300 mcg tablet Active {tbl} PO February 21, 2020 1:00am Start: 02-21-2020 take 1 tablet by dia th once Multivit,Calc,Cxn-Df-N2-Lycop (One-A-Day Men's Complete) 240 mcg-30 mcg- 300 mcg tablet Active TABLET PO February 21, 2020 1:00am Start: 02-21-2020 take 1 tablet by dia th once Multivit,Calc,Zsz-Xb-R6-Lycop (One-A-Day Men's Complete) 240 mcg-30 mcg- 300 mcg tablet Active TABLET PO February 21, 2020 12:00am psyllium 3400 mg powder for oral suspension (4 sources) Start: 11-22-2017 Psyllium Husk (With Sugar) 575 GM powder Active 575 g PO DAILY November 22, 2017 12:00am vit d3 (3 sources) Start: 05-04-2022 take 500 [IU] by mouth once daily vit d3 Active PO 1 time daily May 04, 2022 1:00am 500 units daily Start: 05-04-2022 take 500 [IU] by dia th once daily vit d3 Active PO 1 time daily May 04, 2022 12:00am 500 units daily Completed/Discontinued Medications Medication Drug Class(es) Dates Sig (Normalized) Sig (Original) acetaminophen 500 mg oral tablet (4 sources) Start: 02-14-2018 End: 04-10-2019 take 1 tablet by mouth every four hours as needed for pain Acetaminophen 500 MG tablet Discontinued 500 mg PO EVERY 4 HOURS NEEDED as needed for Pain February 14, 2018 1:00am April 10, 2019 4:21pm acetaminophen 325 mg / oxyCODONE hydrochloride 5 mg oral tablet (4 sources) Opioid Agonist Start: 04-23-2019 End: 02-21-2020 Oxycodone-Acetamino phen 1 TABLET tablet Discontinued 1 - 2 {tbl} PO EVERY 4 HOURS NEEDED as needed for Pain April 23, 2019 February 21, 2020 9:03am Start: 04-23-2019 End: 02-21-2020 take 1 tablet by mouth every four hours as needed Oxycodone-Acetaminophen Discontinued 1 - 2 TABLET PO EVERY 4 HOURS NEEDED April 23, 2019 February 21, 2020 9:03am ciprofloxacin 500 mg oral tablet (8 sources) Quinolone Antimicrobial Start: 02-14-2018 End: 02-25-2019 take 1 tablet by mouth twice daily Ciprofloxacin Hcl 500 MG tablet Discontinued 500 mg PO TWICE A DAY February 14, 2018 1:00am February 25, 2019 10:05am Start: 09-16-2017 End: 10-13-2017 take 1 tablet by mouth twice daily Ciprofloxacin Hcl 500 MG tablet Discontinued 500 mg PO TWICE A DAY September 16, 2017 12:00am October 13, 2017 [...] 13, 2017 11:00pm October 13, 2017 2:41pm Dextrin 350 GM powder (1 source) Start: 09-14-2017 End: 10-13-2017 take 350 g by mouth once daily Dextrin 350 GM powder Discontinued 350 g PO DAILY September 14, 2017 12:00am October 13, 2017 3:41pm Diclofenac-Lidocaine- Tape (3 sources) Start: 02-07-2018 End: 02-25-2019 Whqgtqxgpt-Daqqabklf-Ukkw Discontinued 1 EACH TP NEEDED February 07, 2018 3:03pm February 25, 2019 10:05am Start: 02-07-2018 End: 02-25-2019 Qydmekache-Abtoathaz-Fgof Di scontinued 1 EACH TP NEEDED February 07, 2018 1:00am February 25, 2019 10:05am Start: 02-07-2018 End: 02-25-2019 Khsayiiffi-Sbsmflxyd-Ddvp Di scontinued 1 EACH TP NEEDED February 07, 2018 12:00am February 25, 2019 9:05am Dmuxtvfppp-Evvmbhtwl-Mpjg 1 EACH kit, cream and solution (1 source) Start: 02-07-2018 End: 02-25-2019 Dzxrfdyjzl-Xnitdcats-Bkhd 1 EACH kit, cream and solution Discontinued 1 NMA TP NEEDED as needed for ACHILLES TENDON February 07, 2018 1:00am February 25, 2019 10:05am doxycycline hyclate 100 mg oral capsule (2 sources) Tetracy conner-c lass Drug Start: 02-09-2024 End: 03-18-2024 take 2 capsules by mouth once daily Doxycycline Hyclate 100 mg capsule Discontinued 200 mg PO daily 2 February 09, 2024 1:00am March 18, 2024 3:38pm Start: 04-05-2023 End: 04-12-2023 take 1 tablet by mouth twice daily Doxycycline Hyclate 100 mg tablet Discontinued 100 mg PO TWICE A DAY 14 April 05, 2023 1:00am April 11, 2023 1:00am April 12, 2023 1:04am Take on an empty stomach with a couple of crackers and small amount of water. Do not take with dairy products. finasteride 5 mg oral tablet (4 sources) 5-alpha Reductase Inhibitor Start: 09-14-2017 End: 02-25-2019 take 1 tablet by mouth once daily Finasteride 5 MG tablet Discontinued 5 mg PO DAILY September 14, 2017 12:00am February 25, 2019 10:05am ibuprofen 600 mg oral tablet (4 sources) Nonsteroidal Anti-inflammatory Drug Start: 02-14-2018 End: 04-10-2019 take 1 tablet by mouth every six hours as needed for pain Ibuprofen 600 MG tablet Discontinued 600 mg PO EVERY 6 HOURS NEEDED as needed for Pain February 14, 2018 11:19am April 10, 2019 4:21pm metroNIDAZOLE 500 mg oral tablet (4 sources) Nitroimidazole Antimicrobial Start: 09-16-2017 End: 10-13-2017 take 1 tablet by mouth every eight hours Metronidazole 500 MG tablet Discontinued 500 mg PO Q8H 12 September 16, 2017 12:00am October 13, 2017 [...] 13, 2017 11:00pm February 21, 2020 8:03am Multivitamin With Folic Acid 1 TABLET tablet (1 source) Start: 09-14-2017 End: 02-21-2020 take 1 tablet by mouth once daily Multivitamin With Folic Acid 1 TABLET tablet Discontinued 1 {tbl} PO DAILY September 14, 2017 12:00am February 21, 2020 9:03am tamsulosin hydrochloride 0.4 mg oral capsule (4 sources) alpha-Adrenerg ic Brandi Start: 09-14-2017 End: 02-25-2019 take 1 capsule by mouth once daily Tamsulosin 0.4 MG capsule Discontinued 0.4 mg PO DAILY September 14, 2017 12:00am February 25, 2019 10:05am Problems Active Problems Problem Classification Problem Date Documented Date Episodic/Chronic Disorders of lipid metabolism (7 sources) Dyslipidemia; Translations: [Hyperlipidemia, unspecified] 02-14-2018 Chronic Diverticulosis and diverticulitis (4 sources) Diverticulitis; Translations: [Diverticulitis of intestine, part unspecified, without perforation or abscess without bleeding] 02-14-2018 Chronic Hyperplasia of prostate (4 sources) Benign prostatic hyperplasia; Translations: [Benign prostatic hyperplasia without lower urinary tract symptoms] 02-14-2018 Chronic Nutritional deficiencies (4 sources) Vitamin D deficiency; Translations: [Vitamin D deficiency, unspecified] 03-01-2021 Chronic Osteoarthritis (2 sources) Osteoarthritis of right knee joint; Translations: [Unilateral primary osteoarthritis, right knee] Onset: 03-18-2024 03-18-2024 Chronic Other connective tissue disease (3 sources) Pain in calf; Translations: [Pain in unspecified lower leg] 05-02-2022 Episodic Other connective tissue disease (2 sources) Pain in unspecified lower leg; Translations: [Pain in limb] 05-02-2022 Episodic Other screening for suspected conditions (not mental disorders or infectious disease) (1 source) Encounter for screening for malignant neoplasm of prostate; Translations: [Encounter for screening for malignant neoplasm of prostate] Onset: 08-19-2024 Episodic Other skin disorders (1 source) Cyst of skin; Translations: [Follicular cyst of the skin and subcutaneous tissue, unspecified] 05-29-2023 Episodic Spondylosis; intervertebral disc disorders; other back problems (9 sources) Neck pain; Translations: [Cervicalgia] 05-02-2022 Episodic Superficial injury; contusion (2 sources) Tick bite; Translations: [Insect bite (nonvenomous), left lower leg, initial encounter] 02-09-2024 Episodic Past or Other Problems Problem Classification Problem Date Documented Da te Episodic/Chronic Other non-traumatic joint disorders (1 source) Pain in right knee; Translations: [Pain in right knee] Onset: 03-18-2024 Episodic Results Test Name Value Interpretation Reference Range Facility PSA,Total - Annual Screenon 08-15-2024 PSA,TOT SCREEN 1.42 ng/mL Normal 0.02-4.00 [facility] Comment on above: Result Comment: This test was performed using the [employer] tPSA method. Measured values of a patient??sample can vary depending on the testing procedure used. PSA values determined on patient samples by different testing procedures cannot be used interchangeably. If there is a change in PSA assays while monitoring therapy, sequential testing should be performed to confirm baseline values. Performed By: #### L [id number] #### [facility] [address] [place], [address] Knee 4 or More Viewson 03-18 Knee 4 or More Views [facility] [address] [place] [address] Knee 4 or More Views MR#: [id number] Acct: [id number] Name: WING ORTIZ ALAN Rep #: [id number] : 1955 M 68 From: Yared Clinton MD PCP: Dr. Anila Jordan MD Status: DEP AMB Study: Knee 4 or More Views Date of Exam: 03/18/24 Exam# [id number] Ordering Dr: Mac Florez DO -[id number] STUDY: X-RAY - RIGHT KNEE REASON FOR [...] 14:01 EST Reading Location ID and State: [address] [place] [address] , Service support , CC: Dr. Mac Florez DO; Dr. Anila Jordan MD [place] Layer: Signed Normal [facility] Orthopedic Visit Reporton Orthopedic Visit Report [facility] [address] [place] [address] OFFICE VISIT Date of Service: 03/18/24 MR#: [id number] Acct: [id number] Name: WING ORTIZ Rep #: [id number] : 1955 Provider: Dr. Mac arriaga DO Age/Sex: 68/M [place] [facility] Status: Signed Intake Vital Signs 05/01/23 09:05 [...] mg-C 30 mg-maria e 1 mg capsule multivit,calc,mins- folic 240 tab PO 02/21/20 03/18/24 History mcg-vit [...] by me, Dr. Mac Florez, DO 03/18/24 7395. Part of today???s visit was documented by [...] Performing Provider: Mac Florez DO Performing Location: [facility] Administered by: Mac Florez DO on 03/18/24 15:06 Dose Route Admin Location Dispensed Lot Number Expiration Date NDC Man ufacturer 40 mg intra-articular right knee 1 mL [id number] 10/11/25 2256-6337-29 [facility] Supplemental Info 03/18/2024 x-ray right knee: There [...] knee M17.11 Osteoarthritis type: primary CPT Codes oil agent.kne (more content not included)... Normal [facility] Urgent Care Visit Reporton 1 04-10-2023 Urgent Care Visit Report [facility] [address], [address] [place] [address] OFFICE VISIT Date of Service: 02/09/24 MR#: [id number] Acct: [id number] Name: WING ORTIZ Rep #: [id number] : 1955 Provider: ADAMS Menezes Age/Sex: 68/M [place] [facility] Status: Signed Intake Vital Signs 05/01/23 09:05 02/09/24 13:07 Height 6 ft 1 in BP 136/68 H Blood Pressure Location Rt brachial Position Sitting Respiration 15 Pulse 79 Pulse Source NIBP Temp 99.7 F H Temp Source Oral Pulse Oximetry (%) 99 Oxygen Delivery Method room air Intake Visit Reasons: CONCERN FOR TICK BITE Chief Complaint: tick bite x2 Solution Coordinator Required: No Is patient in pain?: No [...] Medical History (Updated 02/09/24 @ 13:22 by Hayden LAMAS PA) Infected cyst of skin High triglycerides BPH [...] or bodyaches. No other associated symptoms or alleviating/aggrava ting factors. ROS Const Constitutional: No other (6 [...] past year?: No 02/09/24 1325 Date Hayden LAMAS Cosigner Signature: Date (if applicable) CC: Normal [facility] No Panel InformationOrdered By: Dr. Greene on 08-09-2022 Prostate Specific Antigen Screen 1.00 ng/mL 0.00-4.00 [facility] Comment on above: This test was perfor med using the TPSA assay method for the[employer] chemistry system. Values obtained with differentassay methods cannot be used interchangably.When changing PSA assays in the course of monitoring apatient, additional sequential testing should be carriedout to confirm baseline values. Absolute lymphocyte countOrd ered By: Dr. Jordan on 05-02-2022 Lymphocytes Auto (Unsp spec) [#/Vol] 2.66 10*3/uL 0.83-4.51 [facility] Basophil percentageOrdered B y: Dr. Jordan on 05-02-2022 Basophils/100 WBC (Bld) 0.9 % 0-1 [facility] Bilirubin [Mass/Vol] 0.50 mg/dL 0.20-1.00 [facility] Comment on above: For patients on eltr ombopag therapy, use of Dimension [place] TBIL is not recommended. Chloride [Moles/Vol] 108 mmol/L 98-107 [facility] Cholesterol [Mass/Vol] 196 mg/dL <200 [facility] Comment on above: <200 mg/dL Desirable 200-240 mg/dL Borderline >240 mg/dL High Risk Eosinophils/100 WBC (Bld) 1.1 % 0-5 [facility] Glucose [Mass/Vol] 106 mg/dL 74-106 [facility] Comment on above: Fasting Glucose resu lt from 100 to 125 mg/dL suggests IMPAIRED HOMEOSTASIS per A.D.A. criteria. Neutrophils (Bld) [#/Vol] 5.3 10*3/uL 2.0-7.7 [facility] Neutrophils/100 WBC (Bld) 58.8 % 47-70 [facility] Potassium [Moles/Vol] 3.8 mmol/L 3.5-5.1 [facility] Protein [Mass/Vol] 7.5 g/dL 6.4-8.2 [facility] Sodium [Moles/Vol] 141 mmol/L 136-145 [facility] Triglyceride [Mass/Vol] 130 mg/dL <199 [facility] Comment on above: The drugs N-Acetylcy steine and Metamizole may falsely depress this assay.Serum Triglycerides Reference Interval Normal <150 mg/dL Borderline high 150 - 199 mg/dL High 200 - 499 mg/dL Very High > or = 500 mg/dL WBC (Bld) [#/Vol] 9.0 10*3/uL 4.4-11.0 [facility] Blood erythrocytes count (nu mber/volume)Ordered By: Dr. Jordan on 05-02-2022 RBC (Bld) [#/Vol] 4.78 10*6/uL 4.6-6.2 [facility] Blood hemoglobin measurement (mass/volume)Ordered By: Dr. Jordan on 05-02-2022 Hemoglobin (Bld) [Mass/Vol] 14.8 g/dL 13.0-16.5 [facility] Blood lymphocytes/100 leukoc ytesOrdered By: Dr. Jordan on 05-02-2022 Lymphocytes/100 WBC (Bld) 29.5 % 19-41 [facility] Blood monocytes/100 leukocyt esOrdered By: Dr. Jordan on 05-02-2022 Monocytes/100 WBC (Bld) 9.4 % 0-10 [facility] Blood platelet mean volumeOr dered By: Dr. Jordan on 05-02-2022 Platelet mean volume (Bld) [Entitic vol] 10.2 fL 6.2-12.0 [facility] Determination of erythrocyte mean corpuscular volume (MCV)Ordered By: Dr. Jordan on 05-02-2022 MCV (RBC) [Entitic vol] 91.8 fL 80-94 [facility] Hematocrit Auto (Bld) [Volum e fraction]Ordered By: Dr. Jordan on 05-02-2022 Hematocrit (Bld) [Volume fraction] 43.9 % 40-54 [facility] Laboratory - Chemistry and C hemistry - challengeOrdered By: Dr. Jordan on 05-02-2022 ALP [Catalytic activity/Vol] 54 U/L 45-117 [facility] ALT [Catalytic activity/Vol] 49 U/L 16-61 [facility] CO2 [Moles/Vol] 28.0 mmol/L 21.0-32.0 [facility] Globulin (S) [Mass/Vol] 3.7 g/dL 2.2-4.2 [facility] Urea nitrogen/Creatinine [Mass ratio] 15.5 mg/mg 10-20 [facility] - Hematology and Cell countsOrdered By: Dr. Jordan on 05-02-2022 Erythrocyte distribution width (RBC) [Entitic vol] 41.2 fL 35.1-43.9 [facility] Erythrocyte distribution width (RBC) [Ratio] 12.1 % 11.6-14.6 [facility] Immature granulocytes/100 WBC (Bld) 0.300 % 0.0-0.9 [facility] Comment on above: IG% - Immature Granu locytes (promyelocytes, myelocytes and metamyelocytes) > 1% indicates that a LEFT SHIFT is Present. MCH (RBC) [Entitic mass] 31.0 pg 27.0-32.0 [facility] Nucleated RBC/100 WBC (Bld) [Ratio] 0 % 0-5 [facility] MCHC Auto (RBC) [Mass/Vol]Or dered By: Dr. Jordan on 05-02-2022 MCHC (RBC) [Mass/Vol] 33.7 g/dL 32-36 [facility] No Panel InformationOrdered By: Dr. Jordan on 05-02-2022 D-Dimer Quantitative (PE/DVT) 0.33 FEU/ug/m 0.27-0.49 [facility] Comment on above: NORMAL D-Dimer level (<0.50) indicates no DVT or PE. Estimated GFR (MDRD) Amer 93 mL/min >60 [facility] Comment on above: GFR Calc Estimated GFR (MDRD) Non-Af Amer 76 mL/min >60 [facility] Comment on above: Non- GFR Calc Thyroid Stimulating Hormone (TSH) 1.48 uIU/mL 0.358-3.74 [facility] Vitamin D 25-Hydroxy 24.7 ng/mL [facility] Comment on above: Vitamin D 25(OH) Sta tus Range Deficiency <20 ng/mL (50nmol/L) Insufficiency 20 - 30 ng/mL (50 - 75 nmol/L) Sufficiency 30 - 100 ng/mL (75 - 250 nmol/L) Toxicity >100 ng/mL (>250 nmol/L) Platelets bldOrdered By: Dr. Jordan on 05-02-2022 Platelets (Bld) [#/Vol] 227 10*3/uL 150-450 [facility] Serum or plasma albumin kylie urement (mass/volume)Ordered By: Dr. Jordan on 05-02-2022 Albumin [Mass/Vol] 3.8 g/dL 3.2-5.0 [facility] Serum or plasma albumin/glob ulin mass ratioOrdered By: Dr. Jordan on 05-02-2022 Albumin/Globulin [Mass ratio] 1.0 {ratio} 0.9-2.4 [facility] Serum or plasma calcium kylie urement (mass/volume)Ordered By: Dr. Jordan on 05-02-2022 Calcium [Mass/Vol] 9.1 mg/dL 8.5-10.1 [facility] Serum or plasma cholesterol in HDL measurement (mass/volume)Ordered By: Dr. Jordan on 05-02-2022 Cholesterol in HDL [Mass/Vol] 68 mg/dL >40 [facility] Comment on above: The drugs N-Acetylcy steine and Metamizole may falsely depress this assay. Reference Range HDL <40 mg/dL Low HDL Cholesterol HDL >or= 60 mg/dL High HDL Cholesterol Serum or plasma cholesterol in VLDL measurement (mass/volume)Ordered By: Dr. Jordan on 05-02-2022 Cholesterol in VLDL [Mass/Vol] 26 mg/dL 5-40 [facility] Serum or plasma creatinine m easurement (mass/volume)Ordered By: Dr. Jordan on 05-02-2022 Creatinine [Mass/Vol] 1.03 mg/dL 0.70-1.30 [facility] Comment on above: The validity of the calculated GFR & GFRAA in patients over 70 years has not been determined. Clinical correlation is essential. Serum or plasma low density lipoprotein (LDL) cholesterol measurement (mass/volume)Ordered By: Dr. Jordan on 05-02-2022 Cholesterol in LDL [Mass/Vol] 102 mg/dL 0-130 [facility] Serum or plasma urea nitroge n measurement (mass/volume)Ordered By: Dr. Jordan on 05-02-2022 Urea nitrogen [Mass/Vol] 16 mg/dL 7-18 [facility] Thin prep Papanicolaou smear with manual screeningOrdered By: Dr. Jordan on 05-02-2022 Thin prep Papanicolaou smear with manual screening 27 U/L 15-37 [facility] Thin prep Papanicolaou smear with manual screening 5 5-15 [facility] No Panel Informationon 08-02 Prostate Specific Antigen Screen 0.88 ng/mL 0.00-4.00 [facility] Work Phone: Comment on above: This test was perfor med using the TPSA assay method for [employer] chemistry system. Values obtained with differentassay methods cannot be used interchangably.When changing PSA assays in the course of monitoring apatient, additional sequential testing should be carriedout to confirm baseline values. Vital Signs Date Time Vital Sign Value Performing Clinician Faci lity 05-02-2022 14:33-0500 Body temperature 97.4 [degF] Dr. Anila Jordan Work Phone: [facility] 05-02-2022 14:33-0500 Body weight 90.[address] Anila Jordan Work Phone: [facility] 05-02-2022 14:33-0500 Diastolic blood pressure 75 mm[Hg] Dr. Anila Jordan Work Phone: [facility] 05-02-2022 14:33-0500 Heart rate 78 /min Dr. Anila Jordan Work Phone: [facility] 05-02-2022 14:33-0500 Respiratory rate 16 /min Dr. Anila Jordan Work Phone: [facility] 05-02-2022 14:33-0500 SaO2% (BldA) [Mass fraction] 95 % Dr. Anila Jordan Work Phone: [facility] 05-02-2022 14:33-0500 Systolic blood pressure 113 mm[Hg] Dr. Anila Jordan Work Phone: [facility] Encounters Encounter Date Encounter Type Care Provider Facility Start: 08-15-2024 End: 08-15-[address] Anila Jordan MD Work Phone: [facility] Work Phone: Start: 08-15-2024 End: 08-15-[address] Binu Greene MD -Laboratory Work Phone: Start: 08-15-2024 End: 08-15-2024 ambulatory Binu Greene Facility:[facility] Start: 03-18-2024 End: 03-18-2024 ambulatory Anila Jordan Facility:[facility] Start: 02-09-2024 End: 02-09-2024 ambulatory Anila Jordan Facility:[facility] Start: 08-09-2022 End: 08-09-[address] Anila Jordan Work Phone: [facility] Work Phone: Start: 08-09-2022 End: 08-09-[address] Anila Jordan Work Phone: [facility]-Laboratory Start: 05-02-2022 End: 05-02-[address] Anila Jordan Work Phone: [facility] Work Phone: Start: 05-02-2022 End: 05-02-[address] Anila Jordan Work Phone: [facility] Start: 08-02-2021 End: 08-02-2021 Patient encounter procedure [facility] Procedures Date Procedure Procedure Detail Performing Clinician Start: 08-15-2024 Prostate specific antigen measurement Dr. Anila Jordan MD Work Phone: Comment on above: This test was perfor med using the [employer] tPSA method. Measured values of a patient sample can vary depending on the testing procedure used. PSA values determined on patient samples by different testing procedures cannot be used interchangeably. If there is a change in PSA assays while monitoring therapy, sequential testing should be performed to confirm baseline values. Start: 05-02-2022 X-ray of lumbar spin e, two or three views Dr. Anila Jordan Work Phone: History of transuret hral prostatectomy History of transurethral resection of prostate Immunizations Immunization Date Immunization Notes Care Provider Fa cili 01-25-2021 Covid (Pfizer) [facility] 06-09-2020 Covid (Pfizer) [facility] 05-19-2020 [facility] (Pfizer) [facility] Payers Date Payer Category Payer Medicare [id number] [facility] 2024 Self-pay [id number] [facility] 2024 Unknown [id number] Private Health Insurance [id number] Unknown [employer] *DO NOT USE* [id number] Unknown [id number] Unknown [id number] Unknown [id number] Unknown [id number] Social History Date Type Detail Facility Start: 03-01-2021 End: 05-02-2022 Tobacco smoking status NHIS Unknown if ever smoked [facility] Start: 04-17-2019 Non-smoker [facility] [place] Start: 1955 Sex Assigned At Male [facility] Start: 05-16-2023 [facility] Start: 09-14-2017 Alcohol Alcohol [facility] [place] Start: 09-14-2017 Lives Lives [facility] [place] Medical Equipment Procedure Code Equipment Code Equipment Original Text Equipment Identifier Dates Laparoscopic-assisted sigmoidectomy CLIPKAYLA LG FDA Start: 11-29-2017 Laparoscopic-assisted sigmoidectomy CLIPHEMSTEVEN LG HENRIK FDA Start: 11-29-2017 Laparoscopic-assisted sigmoidectomy CLIP,HEMSTEVEN CHESTER FDA Start: 11-29-2017 Laparoscopic-assisted sigmoidectomy RELOAD,45 FLEX GREEN FDA Start: 11-29-2017 Laparoscopic-assisted sigmoidectomy RELOAD,45 FLEX GREEN FDA Start: 11-29-2017 Laparoscopic-assisted sigmoidectomy STAPLER,INTRA CDH33 ETHICON FDA Start: 11-29-2017 Laparoscopic-assisted sigmoidectomy CLIPHEMSTEVNE CHESTER FDA Start: 11-29-2017 Laparoscopic-assisted sigmoidectomy CLIPHEMSTEVEN LG HENRIK FDA Start: 11-29-2017 Laparoscopic-assisted sigmoidectomy CLIPHEMSTEVEN CHESTER FDA Start: 11-29-2017 Laparoscopic-assisted sigmoidectomy RELOAD,45 FLEX GREEN FDA Start: 11-29-2017 Laparoscopic-assisted sigmoidectomy RELOAD,45 FLEX GREEN FDA Start: 11-29-2017 Laparoscopic-assisted sigmoidectomy STAPLER,INTRA CDH33 ETHICON FDA Start: 11-29-2017 Laparoscopic-assisted sigmoidectomy CLIPHEMSTEVEN CHESTER FDA Start: 11-29-2017 Laparoscopic-assisted sigmoidectomy CLIPHEMOLORONAK LG HENRIK FDA Start: 11-29-2017 Laparoscopic-assisted sigmoidectomy CLIP,HEMSTEVEN MED WERONAK FDA Start: 11-29-2017 Laparoscopic-assisted sigmoidectomy RELOAD,45 FLEX GREEN FDA Start: 11-29-2017 Laparoscopic-assisted sigmoidectomy RELOAD,45 FLEX GREEN FDA Start: 11-29-2017 Laparoscopic-assisted sigmoidectomy STAPLER,INTRA CDH33 ETHICON FDA Start: 11-29-2017 Laparoscopic-assisted sigmoidectomy CLIP,HEMSTEVEN CHESTER FDA Start: 11-29-2017 Laparoscopic-assisted sigmoidectomy CLIPHEMSTEVEN LG HENRIK FDA Start: 11-29-2017 Laparoscopic-assisted sigmoidectomy CLIP,HEMSTEVEN TALLEY NEHARONAK FDA Start: 11-29-2017 Laparoscopic-assisted sigmoidectomy RELOAD,45 FLEX GREEN FDA Start: 11-29-2017 Laparoscopic-assisted sigmoidectomy RELOAD,45 FLEX GREEN FDA Start: 11-29-2017 Laparoscopic-assisted sigmoidectomy STAPLER,INTRA CDH33 ETHICON FDA Start: 11-29-2017 Evaluation note Note Date & Type Note Facility Evaluation note No assessment information availa ble [facility] Work Phone: Evaluation note Note Date & Type Note Facility Evaluation note Diagnosis Onset Date Calf pain acute Lumbar radiculopathy acute [facility] Work Phone: Reason for referral (narrative) Note Date & Type Note Facility Reason for referral (narrative) No reason for referral information available [facility] Work Phone: Advance Directives No Advanced Directives Records Found Advance Directive Response Recorded Date/ Time Living Will No April 17 10:17am Power of Manager Inside No April 17, 2019 10:17am Advance Directive Response Recorded Date/ Time Living Will No April 17 9:17am Power of Manager Inside No April 17, 2019 9:17am Chief Complaint [...] Dr. Anila Jordan MD Primary Care Provider, Attendi Provider Active Team Status: Inactive Member Role Status Dates Dr. Anila Jordan MD Primary Care Pro vider, Attending Provider, Referring Provider Active Team Status: Inactive Member Role Status Dates Dr. Anila Jordan MD Primary Care Provider Active Dr. Binu Greene MD Attending Provider, Referr ing Provider Active Team Status: Inactive Member Role Status Dates Dr. Anila Jordan MD Primary Care Provider Active Start: August 15, 2024 End: August 15, 2024 Dr. Binu Greene MD Attending Provider Active Start: August 15, 2024 End: August 15, 2024 Dr. Binu Greene MD Referring Provider Active Start: August 15, 2024 End: August 15, 2024 (unrecognized sect ion and content) No Status Records Found INFORMATION SOURCE (unrecogn ized section and content) DATE CREATED AUTHOR 08/20/2024 [facility] FOR RECORDS PERTAINING TO PATIENTS WHO ARE [...] BE BASED ON THE PRIMARY CLINICAL RECORDS. [employer] provides no warranty or guarantee of the accuracy or completeness of information in this document.
--- NOTE | 2024-10-17 20:43 | ED.VIS.FALL ---
HPI HPI - Fall History of Present Illness Chief Complaint: Fall Informant: patient and spouse/S.O. Occured/Mechanism Occurred: Today and Hours Usually ambulates: Without assistance Pain/Injury Pain Location: upper extremity (Left elbow) Quality of Pain: Dull Current Severity: Mild Maximum Severity: Mild Associated Symptoms Associated Symptoms: Negative for Parasthesias, Weakness, Loss of function, Inability to ambulate, Loss of consciousness or Amnesia Narrative Narrative: Healthy 68-year-old male was getting off his horse tonight. The mounting block moved and he fell to the ground. He fell 1 to 2 feet. Landed on his left elbow. Had a helmet on. Denies hitting his head or having any head injury. Denies any back, chest or abdominal pain. No other complaints. He is on no blood thinners. This occurred about 3 hours ago. Prior similar symptoms: No Recent Illness/Hospitalization: No [facility] Medical History Infected cyst of skin High triglycerides BPH (benign prostatic hyperplasia) Diverticulitis Dyslipidemia Home Medications ?Medication ?Instructions ?Recorded ?Last Taken ?Type psyllium husk (with sugar) 3.4 575 g PO DAILY DIVERTICULITIS 11/22/17 Unknown History gram/12 gram oral powder glucosamine sulf dipot 1 ea PO DAILY 04/17/19 Unknown History chlr,msm,chond 550 mg-C 30 mg-maria e 1 mg capsule multivit,calc,mins-folic 240 tab PO 02/21/20 Unknown History mcg-vit K1 30 mcg-lycopene 300 mcg tablet (One-A-Day Men's Complete) vit d3 PO 1XD 05/04/22 Unknown History Allergy/AdvReac Type Severity Reaction Status Date / Time No Known Allergies Allergy Verified 10/17/24 19:42 Family History Brother Diabetes Surgical History History of arthroscopic knee surgery History of transurethral resection of prostate History of colectomy (~11/2017) History of tooth extraction History of colonoscopy Social History household members: spouse housing: house Smoking Status: Former smoker quit date: 03/13/85 alcohol intake: current alcohol intake frequency: 0-2 drinks per day Alcohol type: beer substance use type: does not use what type of physical activity do you participate in: walking frequency: daily ROS ROS ED ROS Narrative Denies recent illness. Constitutional Constitutional ED: Denies fever(s) Eyes Eyes: Denies blurry vision ENT ENT ED: Denies ear pain Cardiovascular Cardiovascular: Denies chest pain Respiratory/Chest Respiratory/Chest: Denies cough Gastrointestinal Gastrointestinal: Denies abdominal pain Genitourinary Genitourinary ED: Denies dysuria Musculoskeletal Musculoskeletal: Denies arthralgias Integumentary Denies abscess Neurologic Neurologic: Denies headache(s) Psychiatric Psychiatric: Denies anxiety Endocrine Endocrinology: Denies polydipsia Hematologic/Lymphatic Hematologic/Lymphatic: Denies easy bleeding, easy bruising or lymphadenopathy Allergic/Immunologic Allergic/Immunologic ED: Denies mouth swelling, tongue swelling or urticaria EXAM Physical Exam Narrative Exam Narrative: 68-year-old male sitting upright in bed. No acute distress. at bedside. Vital signs stable afebrile. H EENT exam pupils round react light. No trauma or tenderness to his face or scalp. No hematoma or lacerations. Neck nontender. Trachea midline. Back and spine nontender. Lungs clear to auscultation bilaterally. Heart regular rhythm no murmur. Chest wall ribs nontender. Abdomen soft nontender. Pelvic girdle intact. Patient moving all 4 extremities. 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 Normal dorsi plantarflexion. Nontender no deformity. His left elbow there is no swelling. There is no deformity. There is no traumatic bursitis. He has full flexion extension of his left elbow. Left shoulder, forearm, wrist and hand are nontender. 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 Normal sensation. Both upper and lower extremities are nontender normal range of motion. Neurologically is awake alert. GCS of 15. Answering question following commands. Very benign exam. Const Vital Signs: 10/17/24 19:40 10/17/24 20:37 Temperature 98.2 F Temperature Source Oral Pulse Rate 66 Respiratory Rate 18 Respiratory Effort Normal Non-Labored Respiratory Pattern Normal Blood Pressure 131/82 H Blood Pressure Mean 98 Pulse Ox 99 Oxygen Delivery Method Room Air Room Air Positive well nourished and well developed; Negative for obese, cachectic, contractures or unkempt General Appearance ED: well developed and NAD; Negative for unkempt, cachectic or contractures Nutritional Appearance: Negative for cachectic or obese HEENT Reports normocephalic atraumatic; Negative for trauma, contusion, hematoma or tenderness Eyes PERRL and EOMs intact bilaterally Neck full ROM, no lymphadenopathy and supple Chest Wall inspection of chest normal and palpation of chest normal Resp normal respiratory effort, no retractions and clear to auscultation bilaterally Cardio regular rate, regular rhythm, S1 normal heart sound, S2 normal heart sound and no murmurs GI non-tender, non-distended and no masses Auscultation: normoactive bowel sounds Palpation: soft; Negative for guarding or rebound tenderness present Back/Spine no CVA tenderness General Back: Negative for CVA tenderness Cervical Spine: Negative for cervical spine tenderness Lumbar Spine / Lower Back: Negative for lumbar spinal tenderness Neuro oriented x3, CN's II-XII intact bilaterally, moves all extremities, no focal motor deficits and no sensory deficits noted [place] Coma Scale: document GCS findings Spontaneous Obeys Commands Oriented 15 Sensorium / Orientation: alert, oriented to person, oriented to place and oriented to time; Negative for orientation impaired, confused, lethargic or stuporous Motor Exam: strength 5/5 throughout Psych mental status grossly normal and thought process normal Appearance: Negative for unkempt Skin Lesions: no lesions Rashes: no rashes MDM MDM MDM Narrative Medical decision making narrative: 68-year-old male was getting off the horse the mounting block moved he fell 1 to 2 feet. Injuring his left elbow. No other complaints. No LOC had a helmet on. No blood thinners. Exam benign. Left elbow x-ray 3 views interpreted by myself and the radiologist shows no fracture or dislocation. Treated as a elbow contusion. Ice, Tylenol Motrin. Follow-up if not improving. Radiography Diagnostic Testing: Clinical Impression(s) from Imaging Studies Elbow X-Ray 10/17/24 19:47 IMPRESSION: No acute osseous abnormalities. Reading Location: [facility] Left elbow x-ray, 3 views, interpreted by myself and the radiologist shows no fracture. No dislocation. Chronic changes. I did go over the x-ray of the patient and his . Discharge Plan Triage Chief Complaint: Fall ED Provider: Breezy Rendon Dx/Rx/DC Orders Clinical Impression: Fall, Contusion of left elbow Instructions: ED Contusion, Elbow Prescriptions: No Action One-A-Day Men's Complete 240 mcg-30 mcg- 300 mcg tablet PO psyllium husk (with sugar) 575 GM powder 575 g PO DAILY glucos sul 1FDx-ona-ojizt-C-Mn 1 EACH capsule 1 ea PO DAILY vit d3 PO 1XD Rx Instructions: 500 units daily Primary Care Provider: Anila Jordan Referrals: Anila Jordan MD [Primary Care Provider] - As Needed Activity Restrictions/Additional Instructions: Ice to the elbow 30 minutes 4 times a day next 3 days. Motrin for pain and inflammation. Tylenol for pain. This will be sore the next several days should progressively improve if not return emergency department or follow-up with your doctor to get a repeat x-ray in 1 week if not improving. Currently the x-ray is normal. Print Language: Polish Disposition Disposition: Home, Self Care
[2024-10-17 20:54] VITALS: BP 129/70; PULSE 67; RESP 17; TEMP 36.8; O2SAT 99
== END 2024-10-17 20:54 | disposition home or self-care (01) ==
PROVIDERS: Emergency Provider Emergency Medicine; PCP Internal Medicine; Visit Provider Emergency Medicine
DX: S50.02XA Contusion of left elbow, initial encounter (principal); Z87.891 Personal history of nicotine dependence; W01.0XXA Fall on same level from slipping, tripping and stumbling without subsequent striking against object, initial encounter
CPT/HCPCS: 73080; 99282